=== PATIENT | female | born 1960 | race Caucasian/White ===

== ENCOUNTER 2017-10-12 15:06 | Inpatient (IN) | payer MEDICARE, MEDICAID ==
[2017-10-12 15:44] LABS: % BASOPHILS 1.8 % (0.0-2.0); % EOSINOPHILS 0.7 % (0.0-5.0); % LYMPHOCYTES 12.1 % (20.0-50.0); % MONOCYTES 6.7 % (2.0-10.0); % NEUTROPHILS 78.7 % (40.0-80.0); BASOPHILE ABSOLUTE 0.1 Th/cumm (0-0.2); HEMATOCRIT 39.8 % (41.0-60); HEMOGLOBIN 13.1 gm/dL (12-16); LYMPHOCYTE ABSOLUTE 0.8 Th/cmm (1.5-3.0); MEAN CELL VOLUME 89.4 fl (81-100); MEAN CORPUSCULAR HEMOGLOBIN 29.5 pg (27.0-31.0); MEAN PLATELET VOLUME 7.5 fl; MONOCYTE ABSOLUTE 0.4 Th/cmm (0.3-1.0); NEUTROPHILE ABSOLUTE 5.2 Th/cmm (1.8-8.0); PLATELET COUNT 229 Th/cmm (150-400); RED BLOOD COUNT 4.45 Mil/cmm (3.80-5.10); RED CELL DISTRIBUTION WIDTH 14.4 % (11.5-20.0); WHITE BLOOD COUNT 6.5 Th/cmm (4.8-10.8)
[2017-10-12 16:02] LABS: ACETAMINOPHEN < 10.0 ug/mL (10.0-30.0); ALB/GLOB RATIO 1.4 (1.0-1.8); ALBUMIN 3.8 gm/dL (3.7-5.3); ALKALINE PHOSPHATASE 103 U/L (34-104); ANION GAP 13.4 (7.0-16.0); BILIRUBIN,TOTAL 0.3 mg/dL (0.3-1.0); BUN - UREA NITROGEN 11 mg/dL (7-25); CALCIUM SERUM 9.6 mg/dL (8.6-10.3); CARBON DIOXIDE 26.6 mEq/L (21.0-31.0); CHLORIDE 104 mEq/L (98-107); CHOLESTEROL 172 mg/dL (<200); CREATININE - SERUM 0.8 mg/dL (0.6-1.2); GFR AFRICAN-AMERICAN > 60.0 ml/min (>90); GFR NON AFRICAN-AMERICAN > 60.0 ml/min; GLUCOSE 82 mg/dL (70-105); HDL -HIGH DENSITY LIPOPROTEIN 76 mg/dL (23-92); SALICYLATES (ASPIRIN) < 25.0 mg/L (30.0-100.0); SGOT 16 U/L (13-39); SGPT/ALT 11 U/L (7-52); SODIUM SERUM 140 mEq/L (136-145); TOTAL PROTEIN,SERUM 6.6 gm/dL (6.0-8.3); TRIGLYCERIDES 62 mg/dL (<150)
--- NOTE | 2017-10-12 16:44 | ED Physician Chart ---
ED Chief Complaint/HPI - Patient Information Date Seen:: 10/12/17 Time Seen:: 15:20 Chief Complaint:: Agitation History of Present Illness:: onset x 3 days of agitation and aggressive behavior; no report of trauma, SIs, H /As, S/T, neck pain, C/P, SOB, Abd. Pain, A/N/V/D/C, fever, chills, or urinary s /s Allergies:: Allergies Allergy/AdvReac Type Severity Reaction Status Date / Time ampicillin Allergy Verified 10/12/17 15:21 ciprofloxacin [From Cipro] Allergy Verified 10/12/17 15:22 Penicillins [PCN] Allergy Verified 10/12/17 15:22 sulfamethoxazole Allergy Verified 10/12/17 15:22 [From Bactrim] trimethoprim [From Bactrim] Allergy Verified 10/12/17 15:22 Vitals:: Vital Signs - 8 hr 10/12/17 15:23 Temp 99.5 F HR 68 RR 16 BP 143/87 O2 Sat % 97 Historian:: Patient, EMS Review:: Nurse's Note Reviewed, Old Chart Reviewed, EMS run form Reviewed ED Review of Systems - Review of Systems General/Constitutional: No fever, No chills, No weight loss, No weakness, No diaphoresis, No edema, No loss of appetite Skin: No skin lesions, No rash, No bruising Head: No headache, No light-headedness Eyes: No loss of vision, No pain, No diplopia ENT: No earache, No nasal drainage, No sore throat, No tinnitus Neck: No neck pain, No swelling, No thyromegaly, No stiffness, No mass noted Cardio Vascular: No chest pain, No palpitations, No PND, No orthopnea, No edema Pulmonary: SOB, Cough, No sputum, Wheezing GI: No nausea, No vomiting, No diarrhea, No pain, No melena, No hematochezia, No constipation, No hematemesis G/U: No dysuria, No frequency, No hematuria, No nacturia [employer] Specialist: No vaginal discharge, No abnormal vaginal bleed, No contraction Musculoskeletal: No bone or joint pain, No back pain, No muscle pain Endocrine: No polyuria, No polydipsia Psychiatric: Prior psych history, Depression, Anxiety, No suicidal ideation, No homicidal ideation, No auditory hallucination, No visual hallucination Hematopoietic: No bruising, No lymphadenopathy Allergic/Immuno: No urticaria, No angioedema Neurological: No syncope, No focal symptoms, No weakness, No paresthesia, No headache, No seizure, No dizziness, No confusion, No vertigo ED Past Medical History - Past Medical History Obtainable: Yes Past Medical History: HTN, CAD, Asthma/COPD, Dyslipidemia, PUD/GERD, Thyroid disorder Family History: Heart disease, HTN Social History: Non Smoker, No Alcohol, No Drug Use, Single, Care Facility Surgical History: None Psychiatricy History: Depression, Bipolar Medication: Reviewed Family Medical History - Family Member Mother History Unknown: Yes ED Physical Exam - Physical Examination General/Constitutional: Awake, Well-developed, well-nourished, Alert, No distress, GCS 15, Non-toxic appearing, Ambulatory Head: Atraumatic Eyes: Lids, conjuctiva normal, PERRL, EOMI Skin: Nl inspection, No rash, No skin lesions, No ecchymosis, Well hydrated, No lymphadenopathy ENMT: External ears, nose nl, TM canals nl, Nasal exam nl, Lips, teeth, gums nl , Oropharynx nl, Tonsils nl Neck: Nontender, Full ROM w/o pain, No JVD, No nuchal rigidity, No bruit, No mass, No stridor Respiratory: Nl effort/Exclusion, Clear to Auscultation, No Wheeze/Rhonchi/Rales Cardio Vascular: RRR, No murmur, gallop, rubs, NL S1 S2, Carotid/Femoral/Distal pulses equal bilaterally GI: No tenderness/rebounding/guarding, No organomegaly, No hernia, Normal BS's, Nondistended, No mass/bruits, No McBurney tenderness : No CVA tenderness Extremities: No tenderness or effusion, Full ROM, normal strength in all extremities, No edema, Normal digits & nails Neuro/Psych: Alert/oriented, DTR's symmetric, Normal sensory exam, Normal motor strength, Judgement/insight normal, Mood normal, Normal gait, No focal deficits Misc: Normal back, No paraspinal tenderness ED Labs/Radiology/EKG Results - Lab Results Results: Laboratory Tests 10/12/17 10/12/17 15:34 15:34 WBC 6.5 RBC 4.45 Hgb 13.1 Hct 39.8 L MCV 89.4 MCH 29.5 MCHC Differential 33.0 RDW 14.4 Plt Count 229 MPV 7.5 Neutrophils % 78.7 Lymphocytes % 12.1 L Monocytes % 6.7 Eosinophils % 0.7 Basophils % 1.8 Sodium 140 Potassium 4.0 Chloride 104 Carbon Dioxide 26.6 Anion Gap 13.4 BUN 11 Creatinine 0.8 Est GFR ( Amer) > 60.0 Est GFR (Non-Af Amer) > 60.0 BUN/Creatinine Ratio 13.8 Glucose 82 Calcium 9.6 Total Bilirubin 0.3 AST 16 ALT 11 Alkaline Phosphatase 103 Total Protein 6.6 Albumin 3.8 Globulin 2.8 Albumin/Globulin Ratio 1.4 Triglycerides 62 Cholesterol 172 LDL Cholesterol Direct 79 HDL Cholesterol 76 Salicylates < 25.0 L Acetaminophen < 10.0 L Ethyl Alcohol < 10 Comments:: unremarkable - EKG Interpretations EKG Time:: 15:32 Rate & Rhythm: 63; NSR Comments:: non-specific st-t changes ED Septic Shock - . Is Septic Shock (SBP<90, OR Lactate>4 mmol\L) present?: No - <6hrs of presentation: Vital Signs: Vital Signs - 8 hr 10/12/17 15:23 Temp 99.5 F HR 68 RR 16 BP 143/87 O2 Sat % 97 ED Reassessment (Disposition) - Reassessment Reassessment Condition:: Improved - Diagnosis Diagnosis:: Dx: Anxiety; Agitation; Bipolar Disorder; Psychosis; Medical Clearance - Aftercare/Follow up Instructions Aftercare/Follow-Up Instructions:: Counseled pt regarding lab results/diagnosis & need follow up, Counseled pt & family regarding lab results/diagnosis & need follow up - Patient Disposition Discharge/Transfer:: Acute Care w/in this hosp Admitted to:: [facility] Condition at Disposition:: Stable, Improved
[2017-10-12 17:14] LABS: URINE MICROSCOPIC INDICATED? YES; URINE SOURCE CLEAN C
[2017-10-12 17:16] LABS: URINE BILIRUBIN NEGATIVE (NEGATIVE); URINE BLOOD NEGATIVE (NEGATIVE); URINE GLUCOSE (UA) NEGATIVE (NEGATIVE); URINE KETONE TRACE mg/dL (NEGATIVE); URINE LEUKOCYTE ESTERASE MODERATE (NEGATIVE); URINE NITRATE NEGATIVE (NEGATIVE); URINE PROTEIN NEGATIVE (NEGATIVE); URINE UROBILINOGEN 0.2 E.U./dL (0.2 - 1.0)
[2017-10-12 17:25] LABS: URINE CLARITY CLEAR (CLEAR); URINE COLOR YELLOW
[2017-10-12 17:26] LABS: URINE BACTERIA NONE SEEN /hpf (NONE SEEN); URINE EPITHELIAL CELLS NONE SEEN /lpf (FEW); URINE RBC NONE SEEN /hpf (0-5)
[2017-10-12 17:34] VITALS: BP 148/93
[2017-10-12 17:42] LABS: AMPHETAMINE URINE NEGATIVE (NEGATIVE); BARBITURATES URINE POSITIVE (NEGATIVE); COCAINE METABOLITE QUAL URINE NEGATIVE (NEGATIVE); PHENCYCLIDINE (PCP) URINE NEGATIVE (NEGATIVE)
[2017-10-12] MEDS ORDERED: Magnesium Hydroxide (MOM) 30 mL UDC PO PRN (17:42)
[2017-10-12] MEDS ORDERED: Albuterol Nebulizer 2.5mg/3mL HHN PRN (17:42)
[2017-10-12 17:43] LABS: METHAMPHETAMINES QUAL URINE NEGATIVE (NEGATIVE); OPIATES (MORPHINE) QUAL. URINE NEGATIVE (NEGATIVE); TRICYCLICS (TCA) QUAL. URINE NEGATIVE (NEGATIVE)
[2017-10-12 17:44] LABS: CANNABINOID THC POSITIVE (NEGATIVE); METHADONE URINE NEGATIVE (NEGATIVE)
[2017-10-12 17:45] LABS: BENZODIAZEPINES QUAL URINE POSITIVE (NEGATIVE)
[2017-10-12 17:50] LABS: A1C % 5.1 % (4.0-6.0)
[2017-10-12] MEDS ORDERED: Maalox 30 mL Cup PO PRN (17:56)
[2017-10-13] MEDS ORDERED: Diltiazem 30 mg Tab PO SCH (09:00)
[2017-10-13] MEDS ORDERED: Non-Formulary Item 1 EA (Olopatadine Hcl [Pataday] 1 DROP) EACH EYE SCH (09:00)
[2017-10-13] MEDS ORDERED: Non-Formulary Item 1 EA (Multivitamin-Min/Iron/Fa/Vit K [Multi-Day Plus Minerals Tablet] 1 PO SCH (09:00)
[2017-10-13] MEDS: Multivitamin w/ Minerals Tab PO SCH (09:32)
[2017-10-13] MEDS: Diltiazem 30 mg Tab PO SCH ×2 (10:00→18:00)
[2017-10-13] MEDS: APAP/Oxycodone 5/325mg Oral Tab PO PRN ×2 (10:18→22:55)
[2017-10-13] MEDS ORDERED: Fleet Enema 135 mL RC PRN (12:59)
--- NOTE | 2017-10-13 16:25 | Internal Medicine Prog Note ---
Internal Medicine Subjective - Subjective Service Date: 10/13/17 ([id number]) Internal Medicine Objective - Results Result Diagrams: 10/12/17 15:34 10/12/17 15:34 Recent Labs: Laboratory Last Values WBC 6.5 Th/cmm (4.8-10.8) 10/12/17 15:34 RBC 4.45 Mil/cmm (3.80-5.10) 10/12/17 15:34 Hgb 13.1 gm/dL (12-16) 10/12/17 15:34 Hct 39.8 % (41.0-60) L 10/12/17 15:34 MCV 89.4 fl (81-100) 10/12/17 15:34 MCH 29.5 pg (27.0-31.0) 10/12/17 15:34 MCHC Differential 33.0 pg (28.0-36.0) 10/12/17 15:34 RDW 14.4 % (11.5-20.0) 10/12/17 15:34 Plt Count 229 Th/cmm (150-400) 10/12/17 15:34 MPV 7.5 fl 10/12/17 15:34 Neutrophils % 78.7 % (40.0-80.0) 10/12/17 15:34 Lymphocytes % 12.1 % (20.0-50.0) L 10/12/17 15:34 Monocytes % 6.7 % (2.0-10.0) 10/12/17 15:34 Eosinophils % 0.7 % (0.0-5.0) 10/12/17 15:34 Basophils % 1.8 % (0.0-2.0) 10/12/17 15:34 Sodium 140 mEq/L (136-145) 10/12/17 15:34 Potassium 4.0 mEq/L (3.5-5.1) 10/12/17 15:34 Chloride 104 mEq/L (98-107) 10/12/17 15:34 Carbon Dioxide 26.6 mEq/L (21.0-31.0) 10/12/17 15:34 Anion Gap 13.4 (7.0-16.0) 10/12/17 15:34 BUN 11 mg/dL (7-25) 10/12/17 15:34 Creatinine 0.8 mg/dL (0.6-1.2) 10/12/17 15:34 Est GFR ( Amer) > 60.0 ml/min (>90) 10/12/17 15:34 Est GFR (Non-Af Amer) > 60.0 ml/min 10/12/17 15:34 BUN/Creatinine Ratio 13.8 10/12/17 15:34 Glucose 82 mg/dL (70-105) 10/12/17 15:34 Hemoglobin A1c % 5.1 % (4.0-6.0) 10/12/17 15:34 Calcium 9.6 mg/dL (8.6-10.3) 10/12/17 15:34 Total Bilirubin 0.3 mg/dL (0.3-1.0) 10/12/17 15:34 AST 16 U/L (13-39) 10/12/17 15:34 ALT 11 U/L (7-52) 10/12/17 15:34 Alkaline Phosphatase 103 U/L (34-104) 10/12/17 15:34 Total Protein 6.6 gm/dL (6.0-8.3) 10/12/17 15:34 Albumin 3.8 gm/dL (3.7-5.3) 10/12/17 15:34 Globulin 2.8 gm/dL 10/12/17 15:34 Albumin/Globulin Ratio 1.4 (1.0-1.8) 10/12/17 15:34 Triglycerides 62 mg/dL (<150) 10/12/17 15:34 Cholesterol 172 mg/dL (<200) 10/12/17 15:34 LDL Cholesterol Direct 79 mg/dL (75-193) 10/12/17 15:34 HDL Cholesterol 76 mg/dL (23-92) 10/12/17 15:34 TSH 0.60 uIU/ml (0.34-5.60) 10/12/17 15:34 Urine Source CLEAN C 10/12/17 15:45 Urine Color YELLOW 10/12/17 15:45 Urine Clarity CLEAR (CLEAR) 10/12/17 15:45 Urine pH 7.0 (4.6 - 8.0) 10/12/17 15:45 Ur Specific [place] 1.015 (1.005-1.030) 10/12/17 15:45 Urine Protein NEGATIVE mg/dL (NEGATIVE) 10/12/17 15:45 Urine Glucose (UA) NEGATIVE mg/dL (NEGATIVE) 10/12/17 15:45 Urine Ketones TRACE mg/dL (NEGATIVE) 10/12/17 15:45 Urine Blood NEGATIVE (NEGATIVE) 10/12/17 15:45 Urine Nitrate NEGATIVE (NEGATIVE) 10/12/17 15:45 Urine Bilirubin NEGATIVE (NEGATIVE) 10/12/17 15:45 Urine Urobilinogen 0.2 E.U./dL (0.2 - 1.0) 10/12/17 15:45 Ur Leukocyte Esterase MODERATE (NEGATIVE) H 10/12/17 15:45 Urine RBC NONE SEEN /hpf (0-5) 10/12/17 15:45 Urine WBC 6-10 /hpf (0-5) H 10/12/17 15:45 Ur Epithelial Cells NONE SEEN /lpf (FEW) 10/12/17 15:45 Urine Bacteria NONE SEEN /hpf (NONE SEEN) 10/12/17 15:45 Salicylates < 25.0 mg/L (30.0-100.0) L 10/12/17 15:34 Urine Opiates Screen NEGATIVE (NEGATIVE) 10/12/17 15:45 Urine Methadone Screen NEGATIVE (NEGATIVE) 10/12/17 15:45 Acetaminophen < 10.0 ug/mL (10.0-30.0) L 10/12/17 15:34 Ur Barbiturates Screen POSITIVE (NEGATIVE) H 10/12/17 15:45 Ur Tricyclics Screen NEGATIVE (NEGATIVE) 10/12/17 15:45 Ur Phencyclidine Scrn NEGATIVE (NEGATIVE) 10/12/17 15:45 Amphetamines Screen NEGATIVE (NEGATIVE) 10/12/17 15:45 U Methamphetamines Scrn NEGATIVE (NEGATIVE) 10/12/17 15:45 U Benzodiazepines Scrn POSITIVE (NEGATIVE) H 10/12/17 15:45 U Cocaine Metab Screen NEGATIVE (NEGATIVE) 10/12/17 15:45 U Cannabinoids Screen POSITIVE (NEGATIVE) H 10/12/17 15:45 Ethyl Alcohol < 10 mg/dL (0-10) 10/12/17 15:34 - Physical Exam Vitals and I&O: Vital Signs Temp 98.0 F 10/13/17 14:00 Pulse 81 10/13/17 14:00 Resp 18 10/13/17 14:00 BP 133/85 10/13/17 14:00 Pulse Ox 98 10/13/17 14:00 Intake & Output 10/12/17 10/13/17 10/13/17 18:59 06:59 18:59 Other: Stool Characteristics Soft Active Medications: Current Medications Acetaminophen (Tylenol) 650 mg PO Q4HR PRN PRN Reason: Mild Pain / Temp above 100 Stop: 12/11/17 17:55 Al Hydrox/Mg Hydrox/Simethicone (Maalox) 30 ml PO Q4HR PRN PRN Reason: GI DISTRESS Stop: 12/11/17 17:55 Bisacodyl (Dulcolax 10 Mg Supp) 10 mg RC DAILY PRN PRN Reason: Constipation Stop: 12/11/17 17:37 Cholecalciferol (Vitamin D3) 1,000 iu PO DAILY [facility] Stop: 12/12/17 08:59 Last Admin: 10/13/17 09:32 Dose: 1,000 iu Diltiazem HCl (Cardizem) 30 mg PO BID RODRÍGUEZ Stop: 12/12/17 08:59 Last Admin: 10/13/17 10:00 Dose: 30 mg Docusate Sodium (Colace) 200 mg PO HS [facility] Stop: 12/11/17 20:59 Last Admin: 10/12/17 21:39 Dose: 200 mg Folic Acid (Folate) 5 mg PO DAILY RODRÍGUEZ Stop: 12/12/17 08:59 Last Admin: 10/13/17 09:31 Dose: 5 mg Gabapentin (Neurontin) 800 mg PO TID [facility] Stop: 12/12/17 23:33 Gemfibrozil (Lopid) 600 mg PO HS [facility] Stop: 12/11/17 20:59 Last Admin: 10/12/17 21:39 Dose: 600 mg Isosorbide Mononitrate (Imdur) 30 mg PO DAILY [facility] Stop: 12/12/17 08:59 Last Admin: 10/13/17 09:32 Dose: 30 mg Levothyroxine Sodium (Synthroid) 0.1 mg PO QDAC RODRÍGUEZ Stop: 12/12/17 07:29 Loratadine (Claritin) 10 mg PO DAILY [facility] Stop: 12/12/17 08:59 Last Admin: 10/13/17 09:32 Dose: 10 mg Lorazepam (Ativan) 0.5 mg PO Q4HR PRN; Protocol PRN Reason: Agitation Stop: 11/11/17 17:55 Magnesium Hydroxide (Milk Of Magnesia) 30 ml PO DAILY PRN PRN Reason: Constipation Stop: 12/11/17 17:41 Mirtazapine (Remeron) mg PO HS RODRÍGUEZ PRN Reason: Protocol Stop: 12/11/17 20:59 Miscellaneous (Butalbit/Acetamin/Caff/Codeine [Fioricet-Cod 49-290-03-30 Cap]) 1 cap PO Q6H PRN PRN Reason: Headache Miscellaneous (Levalbuterol Hcl [Xopenex]) 1 unit IH Q4H PRN PRN Reason: Shortness of Breath Miscellaneous (Levalbuterol Tartrate [Xopenex Hfa]) 0.045 mg IH BID RODRÍGUEZ Stop: 12/12/17 08:59 Miscellaneous (Olopatadine Hcl [Pataday]) 1 drop EACH EYE DAILY [facility] Stop: 12/12/17 08:59 Ondansetron HCl (Zofran Odt) 8 mg PO Q8H PRN PRN Reason: Nausea / Vomiting Oxycodone/Acetaminophen (Percocet 5/325mg Oral Tab) 1 tab PO Q4H PRN PRN Reason: Pain (Severe) Last Admin: 10/13/17 10:18 Dose: 1 tab Rivaroxaban (Xarelto) 20 mg PO DAILY RODRÍGUEZ Stop: 12/12/17 08:59 Last Admin: 10/13/17 09:32 Dose: 20 mg Sodium Phosphate (Fleet Enema) ml RC DAILY PRN PRN Reason: Constipation Stop: 12/13/17 08:59 Triamterene/HCTZ (Dyazide) 1 cap PO DAILY RODRÍGUEZ Stop: 12/12/17 08:59 Last Admin: 10/13/17 10:00 Dose: 1 cap Zolpidem Tartrate (Ambien) 5 mg PO HS PRN PRN Reason: Insomnia Stop: 12/11/17 17:55
--- NOTE | 2017-10-13 18:14 | History & Physical ---
ADMIT DATE: 10/13/2017 CHIEF COMPLAINT: Agitation. HISTORY OF PRESENT ILLNESS: This is a 57-year-old female who is a senior living resident, admitted to the Geropsych Unit due to a 3-day history of agitation and aggressive behavior towards nursing staff. PAST MEDICAL HISTORY: Hypertension, CAD, asthma, COPD, dyslipidemia, GERD, and hypothyroid. FAMILY HISTORY: Noncontributory. SOCIAL HISTORY: The patient is a senior living resident. SURGICAL HISTORY: None. MEDICATIONS: Please see medication list. REVIEW OF SYSTEMS: GENERAL: Denies any fevers and chills. CARDIOVASCULAR: Denies chest pain. RESPIRATORY: Denies shortness of breath. GASTROINTESTINAL: Denies nausea, vomiting, abdominal pain. GENITOURINARY: Denies increased frequency or dysuria. NEUROLOGIC: No headaches, seizures, or syncope. All other systems are reviewed and are negative. PHYSICAL EXAMINATION: GENERAL: The patient is well developed, well nourished, no acute distress. VITAL SIGNS: Temperature 98.0, heart rate 81, blood pressure 132/85, respiration 18, O2 __%. HEENT: Head; normocephalic, atraumatic. NECK: Supple. No mass. LUNGS: Clear bilaterally. HEART: Regular rate and rhythm. ABDOMEN: Soft, nontender. LABORATORY DATA: WBC 6.5, H and H 13.1 and 39.8, platelet of 229. Sodium 140, potassium 4.0, chloride 104, BUN 11, creatinine 0.8. The patient had a urinalysis done, positive for UTI. ASSESSMENT: Acute urinary tract infection, agitation, hypertension, COPD, GERD, hypothyroid. PLAN: We will add p.o. antibiotics of Levaquin for the patient's UTI. We will encourage fluids. Continue senior living medications. We will continue to follow this patient. JOB# [id number]
--- NOTE | 2017-10-14 01:13 | Psychosocial Evaluation ---
DATE OF SERVICE: 10/12/2017 IDENTIFYING DATA: The patient is a 57-year-old woman, resident of [facility]. Information obtained by directly interviewing the patient as well as reviewing the admission papers and they are reliable. JUSTIFICATION FOR HOSPITALIZATION: The patient is admitted on a voluntary basis in view of her acute depression and agitation. CHIEF COMPLAINT: "I don't know. I am having severe headache." HISTORY OF PRESENT ILLNESS: This is the first psychiatric hospitalization to [facility] for this 57-year-old who is a resident of the [facility]. The patient is reported to have been getting easily agitated and hence the patient has been transferred over here for further care. PAST PSYCHIATRIC HISTORY: The patient is reported to have been diagnosed with depression and has been on Prozac and Remeron. MEDICAL HISTORY AND PHYSICAL EXAMINATION: Requested by Dr. Chogn. The patient has a history of chronic kidney disease stage 3 and psoriasis and asthma. ALLERGIES: THE PATIENT IS REPORTED TO BE ALLERGIC TO AMPICILLIN, CIPRO, PENICILLIN, AND BACTRIM. SUBSTANCE ABUSE HISTORY: None. MENTAL STATUS EXAMINATION: The patient is a 57-year-old, looking her stated age, superficially cooperative. The patient is tearful and crying. The patient is stating that she has been having lot of headache and is not able to relax. The patient is superficially cooperative. Eye contact is noted to be poor. Mood is noted to be depressed. Denies any active hallucinations or delusions are noted at this time. Coping skills are noted to be very poor. The patient is reported to have been getting easily agitated and screaming and yelling. The patient at this time is not able to contract for safety. The patient's behavior has been agitated and the patient could not be contained at a lower level of care and hence the patient has been transferred over here for further care. The patient is alert and awake and the patient is fully aware that she is in the hospital. The patient is also ____ work and age. Attention span and concentration are noted to be poor at this time. DIAGNOSTIC IMPRESSION: AXIS I: Major depressive disorder, recurrent and moderate. AXIS II: None. AXIS III: As per Dr. Chong. IMMEDIATE TREATMENT PLAN: The patient is going to be observed on inpatient unit, provided with supportive psychotherapy. The patient is going to be closely monitored. Once stabilized, the patient is going to be discharged to [facility] to be followed up on an outpatient basis. JOB# [id number]
[2017-10-14] MEDS: Levothyroxine 0.1 Mg Tab PO SCH (06:41)
[2017-10-14] MEDS: APAP/Oxycodone 5/325mg Oral Tab PO PRN ×3 (09:16→21:05)
[2017-10-14] MEDS: Multivitamin w/ Minerals Tab PO SCH (09:17)
[2017-10-14] MEDS: Diltiazem 30 mg Tab PO SCH ×2 (09:45→17:08)
--- NOTE | 2017-10-14 15:40 | Internal Medicine Prog Note ---
Internal Medicine Subjective - Subjective Service Date: 10/14/17 Patient seen and examined:: with staff Patient is:: awake Per staff patient has:: no adverse event Internal Medicine Objective - Results Result Diagrams: 10/12/17 15:34 10/12/17 15:34 Recent Labs: Laboratory Last Values WBC 6.5 Th/cmm (4.8-10.8) 10/12/17 15:34 RBC 4.45 Mil/cmm (3.80-5.10) 10/12/17 15:34 Hgb 13.1 gm/dL (12-16) 10/12/17 15:34 Hct 39.8 % (41.0-60) L 10/12/17 15:34 MCV 89.4 fl (81-100) 10/12/17 15:34 MCH 29.5 pg (27.0-31.0) 10/12/17 15:34 MCHC Differential 33.0 pg (28.0-36.0) 10/12/17 15:34 RDW 14.4 % (11.5-20.0) 10/12/17 15:34 Plt Count 229 Th/cmm (150-400) 10/12/17 15:34 MPV 7.5 fl 10/12/17 15:34 Neutrophils % 78.7 % (40.0-80.0) 10/12/17 15:34 Lymphocytes % 12.1 % (20.0-50.0) L 10/12/17 15:34 Monocytes % 6.7 % (2.0-10.0) 10/12/17 15:34 Eosinophils % 0.7 % (0.0-5.0) 10/12/17 15:34 Basophils % 1.8 % (0.0-2.0) 10/12/17 15:34 Sodium 140 mEq/L (136-145) 10/12/17 15:34 Potassium 4.0 mEq/L (3.5-5.1) 10/12/17 15:34 Chloride 104 mEq/L (98-107) 10/12/17 15:34 Carbon Dioxide 26.6 mEq/L (21.0-31.0) 10/12/17 15:34 Anion Gap 13.4 (7.0-16.0) 10/12/17 15:34 BUN 11 mg/dL (7-25) 10/12/17 15:34 Creatinine 0.8 mg/dL (0.6-1.2) 10/12/17 15:34 Est GFR ( Amer) > 60.0 ml/min (>90) 10/12/17 15:34 Est GFR (Non-Af Amer) > 60.0 ml/min 10/12/17 15:34 BUN/Creatinine Ratio 13.8 10/12/17 15:34 Glucose 82 mg/dL (70-105) 10/12/17 15:34 Hemoglobin A1c % 5.1 % (4.0-6.0) 10/12/17 15:34 Calcium 9.6 mg/dL (8.6-10.3) 10/12/17 15:34 Total Bilirubin 0.3 mg/dL (0.3-1.0) 10/12/17 15:34 AST 16 U/L (13-39) 10/12/17 15:34 ALT 11 U/L (7-52) 10/12/17 15:34 Alkaline Phosphatase 103 U/L (34-104) 10/12/17 15:34 Total Protein 6.6 gm/dL (6.0-8.3) 10/12/17 15:34 Albumin 3.8 gm/dL (3.7-5.3) 10/12/17 15:34 Globulin 2.8 gm/dL 10/12/17 15:34 Albumin/Globulin Ratio 1.4 (1.0-1.8) 10/12/17 15:34 Triglycerides 62 mg/dL (<150) 10/12/17 15:34 Cholesterol 172 mg/dL (<200) 10/12/17 15:34 LDL Cholesterol Direct 79 mg/dL (75-193) 10/12/17 15:34 HDL Cholesterol 76 mg/dL (23-92) 10/12/17 15:34 TSH 0.60 uIU/ml (0.34-5.60) 10/12/17 15:34 Urine Source CLEAN C 10/12/17 15:45 Urine Color YELLOW 10/12/17 15:45 Urine Clarity CLEAR (CLEAR) 10/12/17 15:45 Urine pH 7.0 (4.6 - 8.0) 10/12/17 15:45 Ur Specific [place] 1.015 (1.005-1.030) 10/12/17 15:45 Urine Protein NEGATIVE mg/dL (NEGATIVE) 10/12/17 15:45 Urine Glucose (UA) NEGATIVE mg/dL (NEGATIVE) 10/12/17 15:45 Urine Ketones TRACE mg/dL (NEGATIVE) 10/12/17 15:45 Urine Blood NEGATIVE (NEGATIVE) 10/12/17 15:45 Urine Nitrate NEGATIVE (NEGATIVE) 10/12/17 15:45 Urine Bilirubin NEGATIVE (NEGATIVE) 10/12/17 15:45 Urine Urobilinogen 0.2 E.U./dL (0.2 - 1.0) 10/12/17 15:45 Ur Leukocyte Esterase MODERATE (NEGATIVE) H 10/12/17 15:45 Urine RBC NONE SEEN /hpf (0-5) 10/12/17 15:45 Urine WBC 6-10 /hpf (0-5) H 10/12/17 15:45 Ur Epithelial Cells NONE SEEN /lpf (FEW) 10/12/17 15:45 Urine Bacteria NONE SEEN /hpf (NONE SEEN) 10/12/17 15:45 Salicylates < 25.0 mg/L (30.0-100.0) L 10/12/17 15:34 Urine Opiates Screen NEGATIVE (NEGATIVE) 10/12/17 15:45 Urine Methadone Screen NEGATIVE (NEGATIVE) 10/12/17 15:45 Acetaminophen < 10.0 ug/mL (10.0-30.0) L 10/12/17 15:34 Ur Barbiturates Screen POSITIVE (NEGATIVE) H 10/12/17 15:45 Ur Tricyclics Screen NEGATIVE (NEGATIVE) 10/12/17 15:45 Ur Phencyclidine Scrn NEGATIVE (NEGATIVE) 10/12/17 15:45 Amphetamines Screen NEGATIVE (NEGATIVE) 10/12/17 15:45 U Methamphetamines Scrn NEGATIVE (NEGATIVE) 10/12/17 15:45 U Benzodiazepines Scrn POSITIVE (NEGATIVE) H 10/12/17 15:45 U Cocaine Metab Screen NEGATIVE (NEGATIVE) 10/12/17 15:45 U Cannabinoids Screen POSITIVE (NEGATIVE) H 10/12/17 15:45 Ethyl Alcohol < 10 mg/dL (0-10) 10/12/17 15:34 - Physical Exam Vitals and I&O: Vital Signs Temp 97.8 F 10/14/17 14:00 Pulse 75 10/14/17 14:00 Resp 20 10/14/17 14:00 BP 136/82 10/14/17 14:00 Pulse Ox 98 10/14/17 14:00 Intake & Output 10/13/17 10/14/17 10/14/17 18:59 06:59 18:59 Intake Total 1000 Balance 1000 Intake: Oral 1000 Other: # Voids 3 # Bowel Movements 1 Active Medications: Current Medications Acetaminophen (Tylenol) 650 mg PO Q4HR PRN PRN Reason: Mild Pain / Temp above 100 Stop: 12/11/17 17:55 Acetaminophen/Butalbital/Caffeine (Fioricet) 1 tab PO Q6H PRN PRN Reason: Headache Stop: 12/13/17 11:28 Al Hydrox/Mg Hydrox/Simethicone (Maalox) 30 ml PO Q4HR PRN PRN Reason: GI DISTRESS Stop: 12/11/17 17:55 Albuterol Sulfate (Albuterol 2.5mg/3ml Neb Ud) 2.5 mg HHN Q4HRT PRN PRN Reason: Shortness of Breath Stop: 12/11/17 17:41 Albuterol Sulfate (Albuterol 2.5mg/3ml Neb Ud) 2.5 mg HHN BIDRT [facility] Stop: 12/12/17 18:59 Azithromycin (Zithromax) 250 mg PO DAILY [facility] Stop: 10/18/17 08:59 Last Admin: 10/14/17 09:17 Dose: 250 mg Bisacodyl (Dulcolax 10 Mg Supp) 10 mg RC DAILY PRN PRN Reason: Constipation Stop: 12/11/17 17:37 Cholecalciferol (Vitamin D3) 1,000 iu PO DAILY [facility] Stop: 12/12/17 08:59 Last Admin: 10/14/17 09:17 Dose: 1,000 iu Diltiazem HCl (Cardizem) 30 mg PO BID [facility] Stop: 12/12/17 08:59 Last Admin: 10/13/17 18:00 Dose: Not Given Docusate Sodium (Colace) 200 mg PO HS [facility] Stop: 12/11/17 20:59 Last Admin: 10/13/17 21:18 Dose: Not Given Fluoxetine HCl (Prozac) 20 mg PO DAILY [facility] PRN Reason: Protocol Stop: 12/13/17 08:59 Last Admin: 10/14/17 09:16 Dose: 20 mg Folic Acid (Folate) 5 mg PO DAILY [facility] Stop: 12/12/17 08:59 Last Admin: 10/14/17 09:17 Dose: 5 mg Gabapentin (Neurontin) 800 mg PO TID [facility] Stop: 12/12/17 23:33 Last Admin: 10/14/17 09:18 Dose: 800 mg Gemfibrozil (Lopid) 600 mg PO HS [facility] Stop: 12/11/17 20:59 Last Admin: 10/13/17 21:18 Dose: 600 mg Isosorbide Mononitrate (Imdur) 30 mg PO DAILY [facility] Stop: 12/12/17 08:59 Last Admin: 10/14/17 09:18 Dose: 30 mg Levothyroxine Sodium (Synthroid) 0.1 mg PO QDAC [facility] Stop: 12/12/17 07:29 Last Admin: 10/14/17 06:41 Dose: 0.1 mg Loratadine (Claritin) 10 mg PO DAILY [facility] Stop: 12/12/17 08:59 Last Admin: 10/14/17 09:17 Dose: 10 mg Lorazepam (Ativan) 0.5 mg PO Q4HR PRN; Protocol PRN Reason: Agitation Stop: 11/11/17 17:55 Magnesium Hydroxide (Milk Of Magnesia) 30 ml PO DAILY PRN PRN Reason: Constipation Stop: 12/11/17 17:41 Mirtazapine (Remeron) 15 mg PO [facility] PRN Reason: Protocol Stop: 12/11/17 20:59 Miscellaneous (Olopatadine Hcl [Pataday]) 1 drop EACH EYE DAILY [facility] Stop: 12/12/17 08:59 Ondansetron HCl (Zofran Odt) 8 mg PO Q8H PRN PRN Reason: Nausea / Vomiting Oxycodone/Acetaminophen (Percocet 5/325mg Oral Tab) 1 tab PO Q4H PRN PRN Reason: Pain (Severe) Last Admin: 10/14/17 09:16 Dose: 1 tab Rivaroxaban (Xarelto) 20 mg PO DAILY [facility] Stop: 12/12/17 08:59 Last Admin: 10/14/17 09:18 Dose: 20 mg Sodium Phosphate (Fleet Enema) 135 ml RC DAILY PRN PRN Reason: Constipation Stop: 12/13/17 08:59 Triamterene/HCTZ (Dyazide) 1 cap PO DAILY [facility] Stop: 12/12/17 08:59 Last Admin: 10/13/17 10:00 Dose: 1 cap Zolpidem Tartrate (Ambien) 5 mg PO HS PRN PRN Reason: Insomnia Stop: 12/11/17 17:55 General: alert HEENT: NC/AT, PERRLA Neck: Supple Lungs: CTAB Cardiovascular: RRR, Normal S1, Normal S2, without murmur Abdomen: soft, non-tender, non-distended Neurological: alert Internal Medicine Assmt/Plan - Assessment Assessment: acute uti agitation htn copd gerd hypothyroid - Plan Plan: continue oral levaquin fall precautions continue current plan of care
--- NOTE | 2017-10-15 05:30 | Progress Notes ---
DATE: 10/14/2017 SUBJECTIVE: Staff was spoken to. The patient is interviewed. Mood is noted to be depressed. Affect is constricted. The patient's coping skills are noted to be poor. The patient has been having difficult time to cope with the stress. The patient is isolative and withdrawn at this time. ASSESSMENT: The patient is still depressed and having difficult time to cope with the stress. PLAN: To continue the patient with the supportive therapy. I encouraged the patient to verbalize the concerns rather than to act out. The patient is not ready to be discharged to a lower level of care in view of her acute depression. JOB# [id number]
[2017-10-15] MEDS: Levothyroxine 0.1 Mg Tab PO SCH (06:43)
[2017-10-15] MEDS: APAP/Oxycodone 5/325mg Oral Tab PO PRN ×3 (06:48→20:40)
[2017-10-15] MEDS: Multivitamin w/ Minerals Tab PO SCH (09:30)
[2017-10-15] MEDS ORDERED: Polyvinyl Alcohol Ophth Soln 15 mL Bottle EACH EYE PRN (12:53)
[2017-10-15] MEDS: Diltiazem 30 mg Tab PO SCH ×2 (13:18→17:21)
--- NOTE | 2017-10-15 15:01 | Internal Medicine Prog Note ---
Internal Medicine Subjective - Subjective Service Date: 10/15/17 Patient is:: awake Per staff patient has:: no adverse event Internal Medicine Objective - Results Result Diagrams: 10/12/17 15:34 10/12/17 15:34 Recent Labs: Laboratory Last Values WBC 6.5 Th/cmm (4.8-10.8) 10/12/17 15:34 RBC 4.45 Mil/cmm (3.80-5.10) 10/12/17 15:34 Hgb 13.1 gm/dL (12-16) 10/12/17 15:34 Hct 39.8 % (41.0-60) L 10/12/17 15:34 MCV 89.4 fl (81-100) 10/12/17 15:34 MCH 29.5 pg (27.0-31.0) 10/12/17 15:34 MCHC Differential 33.0 pg (28.0-36.0) 10/12/17 15:34 RDW 14.4 % (11.5-20.0) 10/12/17 15:34 Plt Count 229 Th/cmm (150-400) 10/12/17 15:34 MPV 7.5 fl 10/12/17 15:34 Neutrophils % 78.7 % (40.0-80.0) 10/12/17 15:34 Lymphocytes % 12.1 % (20.0-50.0) L 10/12/17 15:34 Monocytes % 6.7 % (2.0-10.0) 10/12/17 15:34 Eosinophils % 0.7 % (0.0-5.0) 10/12/17 15:34 Basophils % 1.8 % (0.0-2.0) 10/12/17 15:34 Sodium 140 mEq/L (136-145) 10/12/17 15:34 Potassium 4.0 mEq/L (3.5-5.1) 10/12/17 15:34 Chloride 104 mEq/L (98-107) 10/12/17 15:34 Carbon Dioxide 26.6 mEq/L (21.0-31.0) 10/12/17 15:34 Anion Gap 13.4 (7.0-16.0) 10/12/17 15:34 BUN 11 mg/dL (7-25) 10/12/17 15:34 Creatinine 0.8 mg/dL (0.6-1.2) 10/12/17 15:34 Est GFR ( Amer) > 60.0 ml/min (>90) 10/12/17 15:34 Est GFR (Non-Af Amer) > 60.0 ml/min 10/12/17 15:34 BUN/Creatinine Ratio 13.8 10/12/17 15:34 Glucose 82 mg/dL (70-105) 10/12/17 15:34 Hemoglobin A1c % 5.1 % (4.0-6.0) 10/12/17 15:34 Calcium 9.6 mg/dL (8.6-10.3) 10/12/17 15:34 Total Bilirubin 0.3 mg/dL (0.3-1.0) 10/12/17 15:34 AST 16 U/L (13-39) 10/12/17 15:34 ALT 11 U/L (7-52) 10/12/17 15:34 Alkaline Phosphatase 103 U/L (34-104) 10/12/17 15:34 Total Protein 6.6 gm/dL (6.0-8.3) 10/12/17 15:34 Albumin 3.8 gm/dL (3.7-5.3) 10/12/17 15:34 Globulin 2.8 gm/dL 10/12/17 15:34 Albumin/Globulin Ratio 1.4 (1.0-1.8) 10/12/17 15:34 Triglycerides 62 mg/dL (<150) 10/12/17 15:34 Cholesterol 172 mg/dL (<200) 10/12/17 15:34 LDL Cholesterol Direct 79 mg/dL (75-193) 10/12/17 15:34 HDL Cholesterol 76 mg/dL (23-92) 10/12/17 15:34 TSH 0.60 uIU/ml (0.34-5.60) 10/12/17 15:34 Urine Source CLEAN C 10/12/17 15:45 Urine Color YELLOW 10/12/17 15:45 Urine Clarity CLEAR (CLEAR) 10/12/17 15:45 Urine pH 7.0 (4.6 - 8.0) 10/12/17 15:45 Ur Specific [place] 1.015 (1.005-1.030) 10/12/17 15:45 Urine Protein NEGATIVE mg/dL (NEGATIVE) 10/12/17 15:45 Urine Glucose (UA) NEGATIVE mg/dL (NEGATIVE) 10/12/17 15:45 Urine Ketones TRACE mg/dL (NEGATIVE) 10/12/17 15:45 Urine Blood NEGATIVE (NEGATIVE) 10/12/17 15:45 Urine Nitrate NEGATIVE (NEGATIVE) 10/12/17 15:45 Urine Bilirubin NEGATIVE (NEGATIVE) 10/12/17 15:45 Urine Urobilinogen 0.2 E.U./dL (0.2 - 1.0) 10/12/17 15:45 Ur Leukocyte Esterase MODERATE (NEGATIVE) H 10/12/17 15:45 Urine RBC NONE SEEN /hpf (0-5) 10/12/17 15:45 Urine WBC 6-10 /hpf (0-5) H 10/12/17 15:45 Ur Epithelial Cells NONE SEEN /lpf (FEW) 10/12/17 15:45 Urine Bacteria NONE SEEN /hpf (NONE SEEN) 10/12/17 15:45 Salicylates < 25.0 mg/L (30.0-100.0) L 10/12/17 15:34 Urine Opiates Screen NEGATIVE (NEGATIVE) 10/12/17 15:45 Urine Methadone Screen NEGATIVE (NEGATIVE) 10/12/17 15:45 Acetaminophen < 10.0 ug/mL (10.0-30.0) L 10/12/17 15:34 Ur Barbiturates Screen POSITIVE (NEGATIVE) H 10/12/17 15:45 Ur Tricyclics Screen NEGATIVE (NEGATIVE) 10/12/17 15:45 Ur Phencyclidine Scrn NEGATIVE (NEGATIVE) 10/12/17 15:45 Amphetamines Screen NEGATIVE (NEGATIVE) 10/12/17 15:45 U Methamphetamines Scrn NEGATIVE (NEGATIVE) 10/12/17 15:45 U Benzodiazepines Scrn POSITIVE (NEGATIVE) H 10/12/17 15:45 U Cocaine Metab Screen NEGATIVE (NEGATIVE) 10/12/17 15:45 U Cannabinoids Screen POSITIVE (NEGATIVE) H 10/12/17 15:45 Ethyl Alcohol < 10 mg/dL (0-10) 10/12/17 15:34 RPR NONREACTIVE (NONREACTIVE) 10/12/17 15:34 - Physical Exam Vitals and I&O: Vital Signs Temp 97.2 F 10/15/17 14:36 Pulse 81 10/15/17 14:36 Resp 20 10/15/17 14:36 BP 123/94 10/15/17 14:36 Pulse Ox 96 10/15/17 14:36 Intake & Output 10/14/17 10/15/17 10/15/17 18:59 06:59 18:59 Intake Total 1000 Balance 1000 Intake: Oral 1000 Other: # Voids 3 # Bowel Movements 0 Active Medications: Current Medications Acetaminophen (Tylenol) 650 mg PO Q4HR PRN PRN Reason: Mild Pain / Temp above 100 Stop: 12/11/17 17:55 Last Admin: 10/15/17 13:18 Dose: 650 mg Acetaminophen/Butalbital/Caffeine (Fioricet) 1 tab PO Q6H PRN PRN Reason: Headache Stop: 12/13/17 11:28 Al Hydrox/Mg Hydrox/Simethicone (Maalox) 30 ml PO Q4HR PRN PRN Reason: GI DISTRESS Stop: 12/11/17 17:55 Albuterol Sulfate (Albuterol 2.5mg/3ml Neb Ud) 2.5 mg HHN Q4HRT PRN PRN Reason: Shortness of Breath Stop: 12/11/17 17:41 Albuterol Sulfate (Albuterol 2.5mg/3ml Neb Ud) 2.5 mg HHN BIDRT COUNT [facility] Stop: 12/12/17 18:59 Artificial Tears (Artificial Tears Ophth Soln) 1 drop EACH EYE Q4H PRN PRN Reason: DRY/ITCHY EYE Stop: 12/14/17 12:52 Bisacodyl (Dulcolax 10 Mg Supp) 10 mg RC DAILY PRN PRN Reason: Constipation Stop: 12/11/17 17:37 Cholecalciferol (Vitamin D3) 1,000 iu PO DAILY [facility] Stop: 12/12/17 08:59 Last Admin: 10/15/17 09:30 Dose: 1,000 iu Diltiazem HCl (Cardizem) 30 mg PO BID [facility] Stop: 12/12/17 08:59 Last Admin: 10/15/17 13:18 Dose: 30 mg Docusate Sodium (Colace) 200 mg PO HS [facility] Stop: 12/11/17 20:59 Last Admin: 10/14/17 21:01 Dose: Not Given Fluoxetine HCl (Prozac) 20 mg PO DAILY [facility] PRN Reason: Protocol Stop: 12/13/17 08:59 Last Admin: 10/15/17 09:30 Dose: 20 mg Folic Acid (Folate) 5 mg PO DAILY [facility] Stop: 12/12/17 08:59 Last Admin: 10/15/17 09:31 Dose: 5 mg Gabapentin (Neurontin) 800 mg PO TID [facility] Stop: 12/12/17 23:33 Last Admin: 10/15/17 09:30 Dose: 800 mg Gemfibrozil (Lopid) 600 mg PO HS [facility] Stop: 12/11/17 20:59 Last Admin: 10/14/17 21:00 Dose: 600 mg Isosorbide Mononitrate (Imdur) 30 mg PO DAILY [facility] Stop: 12/12/17 08:59 Last Admin: 10/15/17 09:31 Dose: 30 mg Levothyroxine Sodium (Synthroid) 0.1 mg PO QDAC COUNT [facility] Stop: 12/12/17 07:29 Last Admin: 10/15/17 06:43 Dose: 0.1 mg Loratadine (Claritin) 10 mg PO DAILY [facility] Stop: 12/12/17 08:59 Last Admin: 10/15/17 09:32 Dose: 10 mg Lorazepam (Ativan) 0.5 mg PO Q4HR PRN; Protocol PRN Reason: Agitation Stop: 11/11/17 17:55 Last Admin: 10/15/17 13:08 Dose: 0.5 mg Magnesium Hydroxide (Milk Of Magnesia) 30 ml PO DAILY PRN PRN Reason: Constipation Stop: 12/11/17 17:41 Mirtazapine (Remeron) 15 mg PO [facility] PRN Reason: Protocol Stop: 12/11/17 20:59 Last Admin: 10/14/17 21:00 Dose: 15 mg Nitrofurantoin Macrocrystals (Macrobid) 100 mg PO BID [facility] PRN Reason: Protocol Stop: 10/20/17 16:59 Ondansetron HCl (Zofran Odt) 8 mg PO Q8H PRN PRN Reason: Nausea / Vomiting Oxycodone/Acetaminophen (Percocet 5/325mg Oral Tab) 1 tab PO Q4H PRN PRN Reason: Pain (Severe) Last Admin: 10/15/17 06:48 Dose: 1 tab Rivaroxaban (Xarelto) 20 mg PO DAILY [facility] Stop: 12/12/17 08:59 Last Admin: 10/15/17 09:30 Dose: 20 mg Sodium Phosphate (Fleet Enema) 135 ml RC DAILY PRN PRN Reason: Constipation Stop: 12/13/17 08:59 Triamterene/HCTZ (Dyazide) 1 cap PO DAILY [facility] Stop: 12/12/17 08:59 Last Admin: 10/15/17 13:19 Dose: 1 cap Zolpidem Tartrate (Ambien) 5 mg PO HS PRN PRN Reason: Insomnia Stop: 12/11/17 17:55 General: alert HEENT: NC/AT, PERRLA Neck: Supple Lungs: CTAB Cardiovascular: RRR, Normal S1, Normal S2, without murmur Abdomen: soft, non-tender, non-distended Neurological: alert Internal Medicine Assmt/Plan - Assessment Assessment: acute uti agitation htn copd gerd hypothyroid - Plan Plan: continue oral levaquin fall precautions continue current plan of care
--- NOTE | 2017-10-16 06:13 | Progress Notes ---
DATE: 10/15/2017 SUBJECTIVE: Staff was spoken to. The patient is interviewed. Mood is noted to be depressed. Affect is constricted. The patient is reporting that she has been having problem with sleep at night time. Coping skills at this time are noted to be poor. No side effects to the medications are noted. PLAN: The patient even being on the zolpidem and mirtazapine, the patient is still having some problems and hence it is decided to start the patient with a low dose of trazodone. The patient is going to be closely monitored with the 25 mg of trazodone at nighttime for the insomnia and the patient is going to be closely monitored. I encouraged to participate in the groups and verbalize the concerns. JOB# [id number]
[2017-10-16] MEDS: Levothyroxine 0.1 Mg Tab PO SCH (06:57)
[2017-10-16] MEDS: APAP/Oxycodone 5/325mg Oral Tab PO PRN ×3 (06:58→21:37)
[2017-10-16] MEDS: Pantoprazole 40 mg EC Tab PO SCH (06:58)
[2017-10-16] MEDS: Multivitamin w/ Minerals Tab PO SCH (09:02)
[2017-10-16] MEDS: Diltiazem 30 mg Tab PO SCH ×2 (09:06→16:39)
--- NOTE | 2017-10-16 09:51 | Consultation ---
DATE OF CONSULTATION: 10/15/2017 REFERRING PHYSICIAN: Marcellus Shin M.D. TYPE OF CONSULTATION: Psychology. HISTORY OF PRESENT ILLNESS: The patient is a 57-year-old female who is a resident of [facility]. The following is by review of the medical record and by the patient's self report. The patient is interviewed and evaluated. According to the staff at her facility, the patient has been getting agitated easily and is poorly redirectable as well as verbalizing acute depression. The patient admits she is very depressed during the clinical interview. The patient complained of having severe headaches recently and does not know what could possibly be wrong with her. She denied any wish to or any suicidal ideation, plan or intention. PAST MEDICAL HISTORY: Please see history and physical by Dr. Chong. PAST PSYCHIATRIC HISTORY: The patient has a history of major depression and is under the care of a psychiatrist and psychologist at her facility. CURRENT MEDICATIONS: Prozac and Remeron. ALLERGIES: AMPICILLIN, CIPRO, PENICILLIN, and BACTRIM. SUBSTANCE ABUSE HISTORY: The patient denies any history. PSYCHOSOCIAL HISTORY: The patient did not answer questions about occupational or educational history or zoroastrian affiliation. The patient denies any physical or sexual abuse history or any legal issues at this time. MENTAL STATUS EXAMINATION: The patient appears to be her stated age. The patient's attitude is generally cooperative. Eye contact is fair to poor. Speech is somewhat delayed. Mood is depressed. Affect is tearful and labile. Thought process indicates perseveration on the patient's medical condition as well as her diagnosis of end-stage renal disease. The patient denied any auditory or visual hallucinations or delusions. The patient's behavior has been compliant with care on the unit. Staff reports that the patient does get agitated at times and there have been several yelling episodes. Impulse control is poor. The patient's concentration is poor. The patient did not respond to cognitive redirection or demonstrate the ability to sustain focus and attention. Sensorium is alert and oriented to self and place. The patient did not participate in the memory assessment. The patient did not participate in the interpretation of proverbs. Insight is poor. Judgment is poor. DIAGNOSTIC IMPRESSION: AXIS I: Major depressive disorder, recurrent, moderate. AXIS II: Deferred. AXIS III: Per Dr. Chong. PLAN: The patient has been seen by Dr. Shin for psychiatric evaluation and the management of the patient's psychotropic medications. We will provide supportive psychotherapy to include cognitive behavioral therapy to reduce the patient's depression. We will provide coping strategies for phase of life issues as well as adjustment to the patient's medical condition and recent decline. We will provide supportive therapy throughout the course of the patient's hospital stay. Thank you, Dr. Shin for this consult and the opportunity to participate with you in this patient's care. [facility]# [id number]
--- NOTE | 2017-10-16 13:57 | Internal Medicine Prog Note ---
Internal Medicine Subjective - Subjective Service Date: 10/16/17 Patient is:: awake Per staff patient has:: no adverse event Internal Medicine Objective - Results Result Diagrams: 10/12/17 15:34 10/12/17 15:34 Recent Labs: Laboratory Last Values WBC 6.5 Th/cmm (4.8-10.8) 10/12/17 15:34 RBC 4.45 Mil/cmm (3.80-5.10) 10/12/17 15:34 Hgb 13.1 gm/dL (12-16) 10/12/17 15:34 Hct 39.8 % (41.0-60) L 10/12/17 15:34 MCV 89.4 fl (81-100) 10/12/17 15:34 MCH 29.5 pg (27.0-31.0) 10/12/17 15:34 MCHC Differential 33.0 pg (28.0-36.0) 10/12/17 15:34 RDW 14.4 % (11.5-20.0) 10/12/17 15:34 Plt Count 229 Th/cmm (150-400) 10/12/17 15:34 MPV 7.5 fl 10/12/17 15:34 Neutrophils % 78.7 % (40.0-80.0) 10/12/17 15:34 Lymphocytes % 12.1 % (20.0-50.0) L 10/12/17 15:34 Monocytes % 6.7 % (2.0-10.0) 10/12/17 15:34 Eosinophils % 0.7 % (0.0-5.0) 10/12/17 15:34 Basophils % 1.8 % (0.0-2.0) 10/12/17 15:34 Sodium 140 mEq/L (136-145) 10/12/17 15:34 Potassium 4.0 mEq/L (3.5-5.1) 10/12/17 15:34 Chloride 104 mEq/L (98-107) 10/12/17 15:34 Carbon Dioxide 26.6 mEq/L (21.0-31.0) 10/12/17 15:34 Anion Gap 13.4 (7.0-16.0) 10/12/17 15:34 BUN 11 mg/dL (7-25) 10/12/17 15:34 Creatinine 0.8 mg/dL (0.6-1.2) 10/12/17 15:34 Est GFR ( Amer) > 60.0 ml/min (>90) 10/12/17 15:34 Est GFR (Non-Af Amer) > 60.0 ml/min 10/12/17 15:34 BUN/Creatinine Ratio 13.8 10/12/17 15:34 Glucose 82 mg/dL (70-105) 10/12/17 15:34 Hemoglobin A1c % 5.1 % (4.0-6.0) 10/12/17 15:34 Calcium 9.6 mg/dL (8.6-10.3) 10/12/17 15:34 Total Bilirubin 0.3 mg/dL (0.3-1.0) 10/12/17 15:34 AST 16 U/L (13-39) 10/12/17 15:34 ALT 11 U/L (7-52) 10/12/17 15:34 Alkaline Phosphatase 103 U/L (34-104) 10/12/17 15:34 Total Protein 6.6 gm/dL (6.0-8.3) 10/12/17 15:34 Albumin 3.8 gm/dL (3.7-5.3) 10/12/17 15:34 Globulin 2.8 gm/dL 10/12/17 15:34 Albumin/Globulin Ratio 1.4 (1.0-1.8) 10/12/17 15:34 Triglycerides 62 mg/dL (<150) 10/12/17 15:34 Cholesterol 172 mg/dL (<200) 10/12/17 15:34 LDL Cholesterol Direct 79 mg/dL (75-193) 10/12/17 15:34 HDL Cholesterol 76 mg/dL (23-92) 10/12/17 15:34 TSH 0.60 uIU/ml (0.34-5.60) 10/12/17 15:34 Urine Source CLEAN C 10/12/17 15:45 Urine Color YELLOW 10/12/17 15:45 Urine Clarity CLEAR (CLEAR) 10/12/17 15:45 Urine pH 7.0 (4.6 - 8.0) 10/12/17 15:45 Ur Specific [place] 1.015 (1.005-1.030) 10/12/17 15:45 Urine Protein NEGATIVE mg/dL (NEGATIVE) 10/12/17 15:45 Urine Glucose (UA) NEGATIVE mg/dL (NEGATIVE) 10/12/17 15:45 Urine Ketones TRACE mg/dL (NEGATIVE) 10/12/17 15:45 Urine Blood NEGATIVE (NEGATIVE) 10/12/17 15:45 Urine Nitrate NEGATIVE (NEGATIVE) 10/12/17 15:45 Urine Bilirubin NEGATIVE (NEGATIVE) 10/12/17 15:45 Urine Urobilinogen 0.2 E.U./dL (0.2 - 1.0) 10/12/17 15:45 Ur Leukocyte Esterase MODERATE (NEGATIVE) H 10/12/17 15:45 Urine RBC NONE SEEN /hpf (0-5) 10/12/17 15:45 Urine WBC 6-10 /hpf (0-5) H 10/12/17 15:45 Ur Epithelial Cells NONE SEEN /lpf (FEW) 10/12/17 15:45 Urine Bacteria NONE SEEN /hpf (NONE SEEN) 10/12/17 15:45 Salicylates < 25.0 mg/L (30.0-100.0) L 10/12/17 15:34 Urine Opiates Screen NEGATIVE (NEGATIVE) 10/12/17 15:45 Urine Methadone Screen NEGATIVE (NEGATIVE) 10/12/17 15:45 Acetaminophen < 10.0 ug/mL (10.0-30.0) L 10/12/17 15:34 Ur Barbiturates Screen POSITIVE (NEGATIVE) H 10/12/17 15:45 Ur Tricyclics Screen NEGATIVE (NEGATIVE) 10/12/17 15:45 Ur Phencyclidine Scrn NEGATIVE (NEGATIVE) 10/12/17 15:45 Amphetamines Screen NEGATIVE (NEGATIVE) 10/12/17 15:45 U Methamphetamines Scrn NEGATIVE (NEGATIVE) 10/12/17 15:45 U Benzodiazepines Scrn POSITIVE (NEGATIVE) H 10/12/17 15:45 U Cocaine Metab Screen NEGATIVE (NEGATIVE) 10/12/17 15:45 U Cannabinoids Screen POSITIVE (NEGATIVE) H 10/12/17 15:45 Ethyl Alcohol < 10 mg/dL (0-10) 10/12/17 15:34 RPR NONREACTIVE (NONREACTIVE) 10/12/17 15:34 - Physical Exam Vitals and I&O: Vital Signs Temp 97.8 F 10/16/17 06:34 Pulse 74 10/16/17 09:06 Resp 20 10/16/17 06:34 BP 115/70 10/16/17 09:06 Pulse Ox 96 10/16/17 06:34 Intake & Output 10/15/17 10/16/17 10/16/17 18:59 06:59 18:59 Intake Total 1200 240 Balance 1200 240 Intake: Oral 1200 240 Other: # Voids 1 # Bowel Movements 1 Active Medications: Current Medications Acetaminophen (Tylenol) 650 mg PO Q4HR PRN PRN Reason: Mild Pain / Temp above 100 Stop: 12/11/17 17:55 Last Admin: 10/15/17 13:18 Dose: 650 mg Acetaminophen/Butalbital/Caffeine (Fioricet) 1 tab PO Q6H PRN PRN Reason: Headache Stop: 12/13/17 11:28 Al Hydrox/Mg Hydrox/Simethicone (Maalox) 30 ml PO Q4HR PRN PRN Reason: GI DISTRESS Stop: 12/11/17 17:55 Albuterol Sulfate (Albuterol 2.5mg/3ml Neb Ud) 2.5 mg HHN Q4HRT PRN PRN Reason: Shortness of Breath Stop: 12/11/17 17:41 Albuterol Sulfate (Albuterol 2.5mg/3ml Neb Ud) 2.5 mg HHN BIDRT [facility] Stop: 12/12/17 18:59 Artificial Tears (Artificial Tears Ophth Soln) 1 drop EACH EYE Q4H PRN PRN Reason: DRY/ITCHY EYE Stop: 12/14/17 12:52 Last Admin: 10/15/17 17:35 Dose: 1 drop Bisacodyl (Dulcolax 10 Mg Supp) 10 mg RC DAILY PRN PRN Reason: Constipation Stop: 12/11/17 17:37 Cholecalciferol (Vitamin D3) 1,000 iu PO DAILY [facility] Stop: 12/12/17 08:59 Last Admin: 10/16/17 09:03 Dose: 1,000 iu Diltiazem HCl (Cardizem) 30 mg PO BID [facility] Stop: 12/12/17 08:59 Last Admin: 10/16/17 09:06 Dose: 30 mg Docusate Sodium (Colace) 200 mg PO HS [facility] Stop: 12/11/17 20:59 Last Admin: 10/15/17 20:41 Dose: Not Given Fluoxetine HCl (Prozac) 20 mg PO DAILY [facility] PRN Reason: Protocol Stop: 12/13/17 08:59 Last Admin: 10/16/17 09:02 Dose: 20 mg Folic Acid (Folate) 5 mg PO DAILY [facility] Stop: 12/12/17 08:59 Last Admin: 10/16/17 09:03 Dose: 5 mg Gabapentin (Neurontin) 800 mg PO TID [facility] Stop: 12/12/17 23:33 Last Admin: 10/16/17 13:13 Dose: 800 mg Gemfibrozil (Lopid) 600 mg PO HS [facility] Stop: 12/11/17 20:59 Last Admin: 10/15/17 20:41 Dose: 600 mg Isosorbide Mononitrate (Imdur) 30 mg PO DAILY [facility] Stop: 12/12/17 08:59 Last Admin: 10/16/17 09:04 Dose: 30 mg Levothyroxine Sodium (Synthroid) 0.1 mg PO QDAC [facility] Stop: 12/12/17 07:29 Last Admin: 10/16/17 06:57 Dose: 0.1 mg Loratadine (Claritin) 10 mg PO DAILY [facility] Stop: 12/12/17 08:59 Last Admin: 10/16/17 09:03 Dose: 10 mg Lorazepam (Ativan) 0.5 mg PO Q4HR PRN; Protocol PRN Reason: Agitation Stop: 11/11/17 17:55 Last Admin: 10/15/17 22:09 Dose: 0.5 mg Magnesium Hydroxide (Milk Of Magnesia) 30 ml PO DAILY PRN PRN Reason: Constipation Stop: 12/11/17 17:41 Mirtazapine (Remeron) 15 mg PO [facility] PRN Reason: Protocol Stop: 12/11/17 20:59 Last Admin: 10/15/17 20:42 Dose: 15 mg Nitrofurantoin Macrocrystals (Macrobid) 100 mg PO BID [facility] PRN Reason: Protocol Stop: 10/20/17 16:59 Last Admin: 10/16/17 09:04 Dose: 100 mg Ondansetron HCl (Zofran Odt) 8 mg PO Q8H PRN PRN Reason: Nausea / Vomiting Oxycodone/Acetaminophen (Percocet 5/325mg Oral Tab) 1 tab PO Q4H PRN PRN Reason: Pain (Severe) Last Admin: 10/16/17 13:41 Dose: 1 tab Pantoprazole Sodium (Protonix) 40 mg PO QDAC [facility] Stop: 12/14/17 16:29 Last Admin: 10/16/17 06:58 Dose: 40 mg Rivaroxaban (Xarelto) 20 mg PO DAILY [facility] Stop: 12/12/17 08:59 Last Admin: 10/16/17 09:03 Dose: 20 mg Sodium Phosphate (Fleet Enema) 135 ml RC DAILY PRN PRN Reason: Constipation Stop: 12/13/17 08:59 Trazodone HCl (Desyrel) 25 mg PO HS [facility] PRN Reason: Protocol Stop: 12/14/17 20:59 Last Admin: 10/15/17 20:44 Dose: 25 mg Triamterene/HCTZ (Dyazide) 1 cap PO DAILY [facility] Stop: 12/12/17 08:59 Last Admin: 10/16/17 09:06 Dose: 1 cap Zolpidem Tartrate (Ambien) 5 mg PO HS PRN PRN Reason: Insomnia Stop: 12/11/17 17:55 General: alert HEENT: NC/AT, PERRLA Neck: Supple Lungs: CTAB Cardiovascular: RRR, Normal S1, Normal S2, without murmur Abdomen: soft, non-tender, non-distended Neurological: alert Internal Medicine Assmt/Plan - Assessment Assessment: acute uti agitation htn copd gerd hypothyroid - Plan Plan: continue oral levaquin fall precautions continue current plan of care Nutritional Asmnt/Malnutr-PDOC - Dietary Evaluation Malnutrition Findings (Please click <Entered> for more info): Nutritional Asmnt/Malnutrition Start: 10/16/17 10: 06 Text: Status: Active Freq: Document 10/16/17 10:06 RG (Rec: 10/16/17 10:10 RG [email or web address]) Nutritional Asmnt/Malnutrition Patient General Information Diagnosis Psychosis Pertinent Medical Hx/Surgical Hx dyslipidemia, GERD, HTN, CAD, asthma, COPD, hypothyroid Subjective Information Pt sitting up in bed at time of visit and stated she had a good appetite Current Diet Order/ Nutrition Support Vegetarian cardiac chooped Pertinent Medications maalox, vit D3, colace, folate , synthorid, MOM, zofran, protonix, fleet enema Pertinent Labs labs from 10/12: Na 140, K 4.0, Cl 104, CO2 26. 6, BUN 11, Cr 0.8, Ca 9.6, glucose 82 Nutritional Hx/Data Height 5 ft 9 in Height (Calculated Centimeters) 175.3 Current Weight (lbs) 170 lb Weight (Calculated Kilograms) 77.1 Weight (Calculated Grams) 10518.7 Body Mass Index (BMI) 25.1 Weight Status Overweight GI Symptoms GI Symptoms None Last BM 10/15 Cultural/Ethnic/Jewish Belief None noted Usual diet at home unknown Skin Integrity/Comment: jie score 17 Current %PO Good (75-100%) Estimated Nutritional Goals BEE in Kcals: Using Current wt Calories/Kcals/Kg 25-30kcals/kg Kcals Calculated 1925-2310kcals/day Protein: Using Current wt Protein g/kg/kg Protein Calculated 77g/day Fluid: ml per MD Nutritional Problem 1. Problem Problem No nutrition diagnosis at this time Intervention/Recommendation Comments Recommend continuing Cardiac Vegetarian diet Expected Outcomes/Goals Expected Outcomes/Goals PO intake >75% of meals
--- NOTE | 2017-10-16 22:20 | Progress Notes ---
DATE: 10/16/2017 PSYCHIATRIC PROGRESS NOTE SUBJECTIVE: Staff was spoken to. The patient is interviewed. Mood is noted to be irritable. Affect is constricted. Insight and judgment are noted to be still impaired. The patient is still isolative and withdrawn. The patient's major concern seems to be pain at this time. The patient's coping skills are noted to be very poor. ASSESSMENT: The patient is still depressed. PLAN: To continue the patient with the supportive therapy. Encouraged the patient to verbalize the concerns rather than to act out. The patient is stating that she cannot be on the Ambien. She wants only the temazepam because the Ambien makes her to have all the feared dreams. JOB# [id number]
[2017-10-17] MEDS: Pantoprazole 40 mg EC Tab PO SCH (07:01)
[2017-10-17] MEDS: APAP/Oxycodone 5/325mg Oral Tab PO PRN ×3 (07:01→20:13)
[2017-10-17] MEDS: Levothyroxine 0.1 Mg Tab PO SCH (07:01)
[2017-10-17] MEDS: APAP 325mg/Butalbital 50mg/Caff 40mg Tab PO PRN ×2 (08:50→14:20)
[2017-10-17] MEDS: Multivitamin w/ Minerals Tab PO SCH (08:51)
[2017-10-17] MEDS: Diltiazem 30 mg Tab PO SCH ×2 (09:37→17:55)
--- NOTE | 2017-10-17 15:39 | Internal Medicine Prog Note ---
Internal Medicine Subjective - Subjective Service Date: 10/17/17 Patient is:: awake Per staff patient has:: no adverse event Internal Medicine Objective - Results Result Diagrams: 10/12/17 15:34 10/12/17 15:34 Recent Labs: Laboratory Last Values WBC 6.5 Th/cmm (4.8-10.8) 10/12/17 15:34 RBC 4.45 Mil/cmm (3.80-5.10) 10/12/17 15:34 Hgb 13.1 gm/dL (12-16) 10/12/17 15:34 Hct 39.8 % (41.0-60) L 10/12/17 15:34 MCV 89.4 fl (81-100) 10/12/17 15:34 MCH 29.5 pg (27.0-31.0) 10/12/17 15:34 MCHC Differential 33.0 pg (28.0-36.0) 10/12/17 15:34 RDW 14.4 % (11.5-20.0) 10/12/17 15:34 Plt Count 229 Th/cmm (150-400) 10/12/17 15:34 MPV 7.5 fl 10/12/17 15:34 Neutrophils % 78.7 % (40.0-80.0) 10/12/17 15:34 Lymphocytes % 12.1 % (20.0-50.0) L 10/12/17 15:34 Monocytes % 6.7 % (2.0-10.0) 10/12/17 15:34 Eosinophils % 0.7 % (0.0-5.0) 10/12/17 15:34 Basophils % 1.8 % (0.0-2.0) 10/12/17 15:34 Sodium 140 mEq/L (136-145) 10/12/17 15:34 Potassium 4.0 mEq/L (3.5-5.1) 10/12/17 15:34 Chloride 104 mEq/L (98-107) 10/12/17 15:34 Carbon Dioxide 26.6 mEq/L (21.0-31.0) 10/12/17 15:34 Anion Gap 13.4 (7.0-16.0) 10/12/17 15:34 BUN 11 mg/dL (7-25) 10/12/17 15:34 Creatinine 0.8 mg/dL (0.6-1.2) 10/12/17 15:34 Est GFR ( Amer) > 60.0 ml/min (>90) 10/12/17 15:34 Est GFR (Non-Af Amer) > 60.0 ml/min 10/12/17 15:34 BUN/Creatinine Ratio 13.8 10/12/17 15:34 Glucose 82 mg/dL (70-105) 10/12/17 15:34 Hemoglobin A1c % 5.1 % (4.0-6.0) 10/12/17 15:34 Calcium 9.6 mg/dL (8.6-10.3) 10/12/17 15:34 Total Bilirubin 0.3 mg/dL (0.3-1.0) 10/12/17 15:34 AST 16 U/L (13-39) 10/12/17 15:34 ALT 11 U/L (7-52) 10/12/17 15:34 Alkaline Phosphatase 103 U/L (34-104) 10/12/17 15:34 Total Protein 6.6 gm/dL (6.0-8.3) 10/12/17 15:34 Albumin 3.8 gm/dL (3.7-5.3) 10/12/17 15:34 Globulin 2.8 gm/dL 10/12/17 15:34 Albumin/Globulin Ratio 1.4 (1.0-1.8) 10/12/17 15:34 Triglycerides 62 mg/dL (<150) 10/12/17 15:34 Cholesterol 172 mg/dL (<200) 10/12/17 15:34 LDL Cholesterol Direct 79 mg/dL (75-193) 10/12/17 15:34 HDL Cholesterol 76 mg/dL (23-92) 10/12/17 15:34 TSH 0.60 uIU/ml (0.34-5.60) 10/12/17 15:34 Urine Source CLEAN C 10/12/17 15:45 Urine Color YELLOW 10/12/17 15:45 Urine Clarity CLEAR (CLEAR) 10/12/17 15:45 Urine pH 7.0 (4.6 - 8.0) 10/12/17 15:45 Ur Specific [place] 1.015 (1.005-1.030) 10/12/17 15:45 Urine Protein NEGATIVE mg/dL (NEGATIVE) 10/12/17 15:45 Urine Glucose (UA) NEGATIVE mg/dL (NEGATIVE) 10/12/17 15:45 Urine Ketones TRACE mg/dL (NEGATIVE) 10/12/17 15:45 Urine Blood NEGATIVE (NEGATIVE) 10/12/17 15:45 Urine Nitrate NEGATIVE (NEGATIVE) 10/12/17 15:45 Urine Bilirubin NEGATIVE (NEGATIVE) 10/12/17 15:45 Urine Urobilinogen 0.2 E.U./dL (0.2 - 1.0) 10/12/17 15:45 Ur Leukocyte Esterase MODERATE (NEGATIVE) H 10/12/17 15:45 Urine RBC NONE SEEN /hpf (0-5) 10/12/17 15:45 Urine WBC 6-10 /hpf (0-5) H 10/12/17 15:45 Ur Epithelial Cells NONE SEEN /lpf (FEW) 10/12/17 15:45 Urine Bacteria NONE SEEN /hpf (NONE SEEN) 10/12/17 15:45 Salicylates < 25.0 mg/L (30.0-100.0) L 10/12/17 15:34 Urine Opiates Screen NEGATIVE (NEGATIVE) 10/12/17 15:45 Urine Methadone Screen NEGATIVE (NEGATIVE) 10/12/17 15:45 Acetaminophen < 10.0 ug/mL (10.0-30.0) L 10/12/17 15:34 Ur Barbiturates Screen POSITIVE (NEGATIVE) H 10/12/17 15:45 Ur Tricyclics Screen NEGATIVE (NEGATIVE) 10/12/17 15:45 Ur Phencyclidine Scrn NEGATIVE (NEGATIVE) 10/12/17 15:45 Amphetamines Screen NEGATIVE (NEGATIVE) 10/12/17 15:45 U Methamphetamines Scrn NEGATIVE (NEGATIVE) 10/12/17 15:45 U Benzodiazepines Scrn POSITIVE (NEGATIVE) H 10/12/17 15:45 U Cocaine Metab Screen NEGATIVE (NEGATIVE) 10/12/17 15:45 U Cannabinoids Screen POSITIVE (NEGATIVE) H 10/12/17 15:45 Ethyl Alcohol < 10 mg/dL (0-10) 10/12/17 15:34 RPR NONREACTIVE (NONREACTIVE) 10/12/17 15:34 - Physical Exam Vitals and I&O: Vital Signs Temp 97.9 F 10/17/17 06:49 Pulse 87 10/17/17 09:37 Resp 19 10/17/17 06:49 BP 154/83 10/17/17 09:37 Pulse Ox 96 10/17/17 06:49 Intake & Output 10/16/17 10/17/17 10/17/17 18:59 06:59 18:59 Intake Total 1600 120 Balance 1600 120 Intake: Oral 1600 120 Other: # Voids 4 3 # Bowel Movements 0 Active Medications: Current Medications Acetaminophen (Tylenol) 650 mg PO Q4HR PRN PRN Reason: Mild Pain / Temp above 100 Stop: 12/11/17 17:55 Last Admin: 10/15/17 13:18 Dose: 650 mg Acetaminophen/Butalbital/Caffeine (Fioricet) 1 tab PO Q6H PRN PRN Reason: Headache Stop: 12/13/17 11:28 Last Admin: 10/17/17 14:20 Dose: 1 tab Al Hydrox/Mg Hydrox/Simethicone (Maalox) 30 ml PO Q4HR PRN PRN Reason: GI DISTRESS Stop: 12/11/17 17:55 Albuterol Sulfate (Albuterol 2.5mg/3ml Neb Ud) 2.5 mg HHN Q4HRT PRN PRN Reason: Shortness of Breath Stop: 12/11/17 17:41 Albuterol Sulfate (Albuterol 2.5mg/3ml Neb Ud) 2.5 mg HHN BIDRT [facility] Stop: 12/12/17 18:59 Artificial Tears (Artificial Tears Ophth Soln) 1 drop EACH EYE Q4H PRN PRN Reason: DRY/ITCHY EYE Stop: 12/14/17 12:52 Last Admin: 10/15/17 17:35 Dose: 1 drop Bisacodyl (Dulcolax 10 Mg Supp) 10 mg RC DAILY PRN PRN Reason: Constipation Stop: 12/11/17 17:37 Cholecalciferol (Vitamin D3) 1,000 iu PO DAILY [facility] Stop: 12/12/17 08:59 Last Admin: 10/17/17 08:54 Dose: 1,000 iu Diltiazem HCl (Cardizem) 30 mg PO BID [facility] Stop: 12/12/17 08:59 Last Admin: 10/17/17 09:37 Dose: 30 mg Docusate Sodium (Colace) 200 mg PO HS [facility] Stop: 12/11/17 20:59 Last Admin: 10/16/17 21:12 Dose: 200 mg Fluoxetine HCl (Prozac) 20 mg PO DAILY [facility] PRN Reason: Protocol Stop: 12/13/17 08:59 Last Admin: 10/17/17 08:51 Dose: 20 mg Folic Acid (Folate) 5 mg PO DAILY [facility] Stop: 12/12/17 08:59 Last Admin: 10/17/17 08:51 Dose: 5 mg Gabapentin (Neurontin) 800 mg PO TID [facility] Stop: 12/12/17 23:33 Last Admin: 10/17/17 13:10 Dose: 800 mg Gemfibrozil (Lopid) 600 mg PO HS [facility] Stop: 12/11/17 20:59 Last Admin: 10/16/17 21:13 Dose: 600 mg Isosorbide Mononitrate (Imdur) 30 mg PO DAILY [facility] Stop: 12/12/17 08:59 Last Admin: 10/17/17 08:53 Dose: 30 mg Levothyroxine Sodium (Synthroid) 0.1 mg PO QDAC [facility] Stop: 12/12/17 07:29 Last Admin: 10/17/17 07:01 Dose: 0.1 mg Loratadine (Claritin) 10 mg PO DAILY [facility] Stop: 12/12/17 08:59 Last Admin: 10/17/17 08:54 Dose: 10 mg Lorazepam (Ativan) 0.5 mg PO Q4HR PRN; Protocol PRN Reason: Agitation Stop: 11/11/17 17:55 Last Admin: 10/17/17 08:54 Dose: 0.5 mg Magnesium Hydroxide (Milk Of Magnesia) 30 ml PO DAILY PRN PRN Reason: Constipation Stop: 12/11/17 17:41 Mirtazapine (Remeron) 15 mg PO HS [facility] PRN Reason: Protocol Stop: 12/11/17 20:59 Last Admin: 10/16/17 21:13 Dose: 15 mg Nitrofurantoin Macrocrystals (Macrobid) 100 mg PO BID [facility] PRN Reason: Protocol Stop: 10/20/17 16:59 Last Admin: 10/17/17 08:50 Dose: 100 mg Ondansetron HCl (Zofran Odt) 8 mg PO Q8H PRN PRN Reason: Nausea / Vomiting Oxycodone/Acetaminophen (Percocet 5/325mg Oral Tab) 1 tab PO Q4H PRN PRN Reason: Pain (Severe) Last Admin: 10/17/17 14:20 Dose: 1 tab Pantoprazole Sodium (Protonix) 40 mg PO QDAC [facility] Stop: 12/14/17 16:29 Last Admin: 10/17/17 07:01 Dose: 40 mg Rivaroxaban (Xarelto) 20 mg PO DAILY [facility] Stop: 12/12/17 08:59 Last Admin: 10/17/17 08:52 Dose: 20 mg Sodium Phosphate (Fleet Enema) 135 ml RC DAILY PRN PRN Reason: Constipation Stop: 12/13/17 08:59 Temazepam (Restoril) 15 mg PO HS PRN; Protocol PRN Reason: Insomnia Stop: 12/15/17 14:08 Trazodone HCl (Desyrel) 25 mg PO HS [facility] PRN Reason: Protocol Stop: 12/14/17 20:59 Last Admin: 10/16/17 21:13 Dose: 25 mg Triamterene/HCTZ (Dyazide) 1 cap PO DAILY [facility] Stop: 12/12/17 08:59 Last Admin: 10/17/17 09:37 Dose: 1 cap General: alert HEENT: NC/AT, PERRLA Neck: Supple Lungs: CTAB Cardiovascular: RRR, Normal S1, Normal S2, without murmur Abdomen: soft, non-tender, non-distended Neurological: alert Internal Medicine Assmt/Plan - Assessment Assessment: acute uti agitation htn copd gerd hypothyroid - Plan Plan: continue oral levaquin fall precautions continue current plan of care Nutritional Asmnt/Malnutr-PDOC - Dietary Evaluation Malnutrition Findings (Please click <Entered> for more info): Nutritional Asmnt/Malnutrition Start: 10/16/17 10: 06 Text: Status: Active Freq: Document 10/16/17 10:06 RG (Rec: 10/16/17 10:10 RG [email or web address] FN) Nutritional Asmnt/Malnutrition Patient General Information Diagnosis Psychosis Pertinent Medical Hx/Surgical Hx dyslipidemia, GERD, HTN, CAD, asthma, COPD, hypothyroid Subjective Information Pt sitting up in bed at time of visit and stated she had a good appetite Current Diet Order/ Nutrition Support Vegetarian cardiac chooped Pertinent Medications maalox, vit D3, colace, folate , synthorid, MOM, zofran, protonix, fleet enema Pertinent Labs labs from 10/12: Na 140, K 4.0, Cl 104, CO2 26. 6, BUN 11, Cr 0.8, Ca 9.6, glucose 82 Nutritional Hx/Data Height 5 ft 9 in Height (Calculated Centimeters) 175.3 Current Weight (lbs) 170 lb Weight (Calculated Kilograms) 77.1 Weight (Calculated Grams) 37804.7 Body Mass Index (BMI) 25.1 Weight Status Overweight GI Symptoms GI Symptoms None Last BM 10/15 Cultural/Ethnic/Holiness Belief None noted Usual diet at home unknown Skin Integrity/Comment: jie score 17 Current %PO Good (75-100%) Estimated Nutritional Goals BEE in Kcals: Using Current wt Calories/Kcals/Kg 25-30kcals/kg Kcals Calculated 1925-2310kcals/day Protein: Using Current wt Protein g/kg/kg Protein Calculated 77g/day Fluid: ml per MD Nutritional Problem 1. Problem Problem No nutrition diagnosis at this time Intervention/Recommendation Comments Recommend continuing Cardiac Vegetarian diet Expected Outcomes/Goals Expected Outcomes/Goals PO intake >75% of meals
--- NOTE | 2017-10-17 17:07 | Progress Notes ---
DATE: 10/17/2017 Staff was spoken to. The patient is interviewed. Mood is noted to be mildly depressed. Affect is appropriate. The patient states that her pain is resolving at this time. Coping skills are noted to be improving. No side effects to the medications are noted. The patient has been able to verbalize the concerns rather than to act out. JOB# [id number]
[2017-10-18] MEDS: Pantoprazole 40 mg EC Tab PO SCH ×2 (06:50→09:05)
[2017-10-18] MEDS: APAP/Oxycodone 5/325mg Oral Tab PO PRN ×3 (06:50→21:35)
[2017-10-18] MEDS: Levothyroxine 0.1 Mg Tab PO SCH (06:51)
[2017-10-18] MEDS: Diltiazem 30 mg Tab PO SCH ×2 (09:04→17:28)
[2017-10-18] MEDS: Multivitamin w/ Minerals Tab PO SCH (09:21)
--- NOTE | 2017-10-18 15:32 | Internal Medicine Prog Note ---
Internal Medicine Subjective - Subjective Patient seen and examined:: with staff, chart reviewed Patient is:: awake, verbal, interactive Per staff patient has:: no adverse event, no episodes of fall, agitated, tolerating meds Internal Medicine Objective - Results Result Diagrams: 10/12/17 15:34 10/12/17 15:34 Recent Labs: Laboratory Last Values WBC 6.5 Th/cmm (4.8-10.8) 10/12/17 15:34 RBC 4.45 Mil/cmm (3.80-5.10) 10/12/17 15:34 Hgb 13.1 gm/dL (12-16) 10/12/17 15:34 Hct 39.8 % (41.0-60) L 10/12/17 15:34 MCV 89.4 fl (81-100) 10/12/17 15:34 MCH 29.5 pg (27.0-31.0) 10/12/17 15:34 MCHC Differential 33.0 pg (28.0-36.0) 10/12/17 15:34 RDW 14.4 % (11.5-20.0) 10/12/17 15:34 Plt Count 229 Th/cmm (150-400) 10/12/17 15:34 MPV 7.5 fl 10/12/17 15:34 Neutrophils % 78.7 % (40.0-80.0) 10/12/17 15:34 Lymphocytes % 12.1 % (20.0-50.0) L 10/12/17 15:34 Monocytes % 6.7 % (2.0-10.0) 10/12/17 15:34 Eosinophils % 0.7 % (0.0-5.0) 10/12/17 15:34 Basophils % 1.8 % (0.0-2.0) 10/12/17 15:34 Sodium 140 mEq/L (136-145) 10/12/17 15:34 Potassium 4.0 mEq/L (3.5-5.1) 10/12/17 15:34 Chloride 104 mEq/L (98-107) 10/12/17 15:34 Carbon Dioxide 26.6 mEq/L (21.0-31.0) 10/12/17 15:34 Anion Gap 13.4 (7.0-16.0) 10/12/17 15:34 BUN 11 mg/dL (7-25) 10/12/17 15:34 Creatinine 0.8 mg/dL (0.6-1.2) 10/12/17 15:34 Est GFR ( Amer) > 60.0 ml/min (>90) 10/12/17 15:34 Est GFR (Non-Af Amer) > 60.0 ml/min 10/12/17 15:34 BUN/Creatinine Ratio 13.8 10/12/17 15:34 Glucose 82 mg/dL (70-105) 10/12/17 15:34 Hemoglobin A1c % 5.1 % (4.0-6.0) 10/12/17 15:34 Calcium 9.6 mg/dL (8.6-10.3) 10/12/17 15:34 Total Bilirubin 0.3 mg/dL (0.3-1.0) 10/12/17 15:34 AST 16 U/L (13-39) 10/12/17 15:34 ALT 11 U/L (7-52) 10/12/17 15:34 Alkaline Phosphatase 103 U/L (34-104) 10/12/17 15:34 Total Protein 6.6 gm/dL (6.0-8.3) 10/12/17 15:34 Albumin 3.8 gm/dL (3.7-5.3) 10/12/17 15:34 Globulin 2.8 gm/dL 10/12/17 15:34 Albumin/Globulin Ratio 1.4 (1.0-1.8) 10/12/17 15:34 Triglycerides 62 mg/dL (<150) 10/12/17 15:34 Cholesterol 172 mg/dL (<200) 10/12/17 15:34 LDL Cholesterol Direct 79 mg/dL (75-193) 10/12/17 15:34 HDL Cholesterol 76 mg/dL (23-92) 10/12/17 15:34 TSH 0.60 uIU/ml (0.34-5.60) 10/12/17 15:34 Urine Source CLEAN C 10/12/17 15:45 Urine Color YELLOW 10/12/17 15:45 Urine Clarity CLEAR (CLEAR) 10/12/17 15:45 Urine pH 7.0 (4.6 - 8.0) 10/12/17 15:45 Ur Specific [place] 1.015 (1.005-1.030) 10/12/17 15:45 Urine Protein NEGATIVE mg/dL (NEGATIVE) 10/12/17 15:45 Urine Glucose (UA) NEGATIVE mg/dL (NEGATIVE) 10/12/17 15:45 Urine Ketones TRACE mg/dL (NEGATIVE) 10/12/17 15:45 Urine Blood NEGATIVE (NEGATIVE) 10/12/17 15:45 Urine Nitrate NEGATIVE (NEGATIVE) 10/12/17 15:45 Urine Bilirubin NEGATIVE (NEGATIVE) 10/12/17 15:45 Urine Urobilinogen 0.2 E.U./dL (0.2 - 1.0) 10/12/17 15:45 Ur Leukocyte Esterase MODERATE (NEGATIVE) H 10/12/17 15:45 Urine RBC NONE SEEN /hpf (0-5) 10/12/17 15:45 Urine WBC 6-10 /hpf (0-5) H 10/12/17 15:45 Ur Epithelial Cells NONE SEEN /lpf (FEW) 10/12/17 15:45 Urine Bacteria NONE SEEN /hpf (NONE SEEN) 10/12/17 15:45 Salicylates < 25.0 mg/L (30.0-100.0) L 10/12/17 15:34 Urine Opiates Screen NEGATIVE (NEGATIVE) 10/12/17 15:45 Urine Methadone Screen NEGATIVE (NEGATIVE) 10/12/17 15:45 Acetaminophen < 10.0 ug/mL (10.0-30.0) L 10/12/17 15:34 Ur Barbiturates Screen POSITIVE (NEGATIVE) H 10/12/17 15:45 Ur Tricyclics Screen NEGATIVE (NEGATIVE) 10/12/17 15:45 Ur Phencyclidine Scrn NEGATIVE (NEGATIVE) 10/12/17 15:45 Amphetamines Screen NEGATIVE (NEGATIVE) 10/12/17 15:45 U Methamphetamines Scrn NEGATIVE (NEGATIVE) 10/12/17 15:45 U Benzodiazepines Scrn POSITIVE (NEGATIVE) H 10/12/17 15:45 U Cocaine Metab Screen NEGATIVE (NEGATIVE) 10/12/17 15:45 U Cannabinoids Screen POSITIVE (NEGATIVE) H 10/12/17 15:45 Ethyl Alcohol < 10 mg/dL (0-10) 10/12/17 15:34 RPR NONREACTIVE (NONREACTIVE) 10/12/17 15:34 - Physical Exam Vitals and I&O: Vital Signs Temp 97.2 F 10/18/17 06:45 Pulse 98 10/18/17 09:18 Resp 20 10/18/17 06:45 BP 128/93 10/18/17 09:22 Pulse Ox 97 10/18/17 06:45 Intake & Output 10/17/17 10/18/17 10/18/17 18:59 06:59 18:59 Intake Total 1600 240 Balance 1600 240 Intake: Oral 1600 240 Other: # Voids 5 2 # Bowel Movements 1 0 Active Medications: Current Medications Acetaminophen (Tylenol) 650 mg PO Q4HR PRN PRN Reason: Mild Pain / Temp above 100 Stop: 12/11/17 17:55 Last Admin: 10/15/17 13:18 Dose: 650 mg Acetaminophen/Butalbital/Caffeine (Fioricet) 1 tab PO Q6H PRN PRN Reason: Headache Stop: 12/13/17 11:28 Last Admin: 10/17/17 14:20 Dose: 1 tab Al Hydrox/Mg Hydrox/Simethicone (Maalox) 30 ml PO Q4HR PRN PRN Reason: GI DISTRESS Stop: 12/11/17 17:55 Albuterol Sulfate (Albuterol 2.5mg/3ml Neb Ud) 2.5 mg HHN Q4HRT PRN PRN Reason: Shortness of Breath Stop: 12/11/17 17:41 Albuterol Sulfate (Albuterol 2.5mg/3ml Neb Ud) 2.5 mg HHN BIDRT [facility] Stop: 12/12/17 18:59 Artificial Tears (Artificial Tears Ophth Soln) 1 drop EACH EYE Q4H PRN PRN Reason: DRY/ITCHY EYE Stop: 12/14/17 12:52 Last Admin: 10/15/17 17:35 Dose: 1 drop Bisacodyl (Dulcolax 10 Mg Supp) 10 mg RC DAILY PRN PRN Reason: Constipation Stop: 12/11/17 17:37 Cholecalciferol (Vitamin D3) 1,000 iu PO DAILY [facility] Stop: 12/12/17 08:59 Last Admin: 10/18/17 09:04 Dose: 1,000 iu Diltiazem HCl (Cardizem) 30 mg PO BID [facility] Stop: 12/12/17 08:59 Last Admin: 10/18/17 09:04 Dose: 30 mg Docusate Sodium (Colace) 200 mg PO HS [facility] Stop: 12/11/17 20:59 Last Admin: 10/17/17 20:12 Dose: 200 mg Fluoxetine HCl (Prozac) 20 mg PO DAILY [facility] PRN Reason: Protocol Stop: 12/13/17 08:59 Last Admin: 10/18/17 09:20 Dose: 20 mg Folic Acid (Folate) 5 mg PO DAILY [facility] Stop: 12/12/17 08:59 Last Admin: 10/18/17 09:17 Dose: 5 mg Gabapentin (Neurontin) 800 mg PO TID [facility] Stop: 12/12/17 23:33 Last Admin: 10/18/17 09:20 Dose: 800 mg Gemfibrozil (Lopid) 600 mg PO HS [facility] Stop: 12/11/17 20:59 Last Admin: 10/17/17 20:13 Dose: 600 mg Isosorbide Mononitrate (Imdur) 30 mg PO DAILY [facility] Stop: 12/12/17 08:59 Last Admin: 10/18/17 09:18 Dose: 30 mg Levothyroxine Sodium (Synthroid) 0.1 mg PO QDAC [facility] Stop: 12/12/17 07:29 Last Admin: 10/18/17 06:51 Dose: 0.1 mg Loratadine (Claritin) 10 mg PO DAILY [facility] Stop: 12/12/17 08:59 Last Admin: 10/18/17 09:21 Dose: 10 mg Lorazepam (Ativan) 0.5 mg PO Q4HR PRN; Protocol PRN Reason: Agitation Stop: 11/11/17 17:55 Last Admin: 10/18/17 11:03 Dose: 0.5 mg Magnesium Hydroxide (Milk Of Magnesia) 30 ml PO DAILY PRN PRN Reason: Constipation Stop: 12/11/17 17:41 Mirtazapine (Remeron) 15 mg PO [facility] PRN Reason: Protocol Stop: 12/11/17 20:59 Last Admin: 10/17/17 20:13 Dose: 15 mg Nitrofurantoin Macrocrystals (Macrobid) 100 mg PO BID [facility] PRN Reason: Protocol Stop: 10/20/17 16:59 Last Admin: 10/18/17 09:20 Dose: 100 mg Ondansetron HCl (Zofran Odt) 8 mg PO Q8H PRN PRN Reason: Nausea / Vomiting Oxycodone/Acetaminophen (Percocet 5/325mg Oral Tab) 1 tab PO Q4H PRN PRN Reason: Pain (Severe) Last Admin: 10/18/17 06:50 Dose: 1 tab Pantoprazole Sodium (Protonix) 40 mg PO QDAC [facility] Stop: 12/14/17 16:29 Last Admin: 10/18/17 09:05 Dose: Not Given Rivaroxaban (Xarelto) 20 mg PO DAILY [facility] Stop: 12/12/17 08:59 Last Admin: 10/18/17 09:21 Dose: 20 mg Sodium Phosphate (Fleet Enema) 135 ml RC DAILY PRN PRN Reason: Constipation Stop: 12/13/17 08:59 Temazepam (Restoril) 15 mg PO HS PRN; Protocol PRN Reason: Insomnia Stop: 12/15/17 14:08 Trazodone HCl (Desyrel) 25 mg PO HS [facility] PRN Reason: Protocol Stop: 12/14/17 20:59 Last Admin: 10/17/17 20:13 Dose: 25 mg Triamterene/HCTZ (Dyazide) 1 cap PO DAILY [facility] Stop: 12/12/17 08:59 Last Admin: 10/18/17 09:22 Dose: 1 cap General: alert HEENT: NC/AT, PERRLA Neck: Supple Lungs: CTAB Cardiovascular: RRR, Normal S1, Normal S2, without murmur Abdomen: soft, non-tender, non-distended Neurological: alert Internal Medicine Assmt/Plan - Assessment Assessment: - Assessment Assessment: acute uti agitation htn copd gerd hypothyroid - Plan Plan: continue oral levaquin fall precautions continue current plan of care - Plan Plan: cpm Nutritional Asmnt/Malnutr-PDOC - Dietary Evaluation Malnutrition Findings (Please click <Entered> for more info): Nutritional Asmnt/Malnutrition Start: 10/16/17 10: 06 Text: Status: Active Freq: Document 10/16/17 10:06 RG (Rec: 10/16/17 10:10 [facility] Nutritional Asmnt/Malnutrition Patient General Information Diagnosis Psychosis Pertinent Medical Hx/Surgical Hx dyslipidemia, GERD, HTN, CAD, asthma, COPD, hypothyroid Subjective Information Pt sitting up in bed at time of visit and stated she had a good appetite Current Diet Order/ Nutrition Support Vegetarian cardiac chooped Pertinent Medications maalox, vit D3, colace, folate , synthorid, MOM, zofran, protonix, fleet enema Pertinent Labs labs from 10/12: Na 140, K 4.0, Cl 104, CO2 26. 6, BUN 11, Cr 0.8, Ca 9.6, glucose 82 Nutritional Hx/Data Height 1.75 m Height (Calculated Centimeters) 175.3 Current Weight (lbs) 77.111 kg Weight (Calculated Kilograms) 77.1 Weight (Calculated Grams) 78318.7 Body Mass Index (BMI) 25.1 Weight Status Overweight GI Symptoms GI Symptoms None Last BM 10/15 Cultural/Ethnic/Alevism Belief None noted Usual diet at home unknown Skin Integrity/Comment: jie score 17 Current %PO Good (75-100%) Estimated Nutritional Goals BEE in Kcals: Using Current wt Calories/Kcals/Kg 25-30kcals/kg Kcals Calculated 1925-2310kcals/day Protein: Using Current wt Protein g/kg/kg Protein Calculated 77g/day Fluid: ml per MD Nutritional Problem 1. Problem Problem No nutrition diagnosis at this time Intervention/Recommendation Comments Recommend continuing Cardiac Vegetarian diet Expected Outcomes/Goals Expected Outcomes/Goals PO intake >75% of meals
[2017-10-18] MEDS: APAP 325mg/Butalbital 50mg/Caff 40mg Tab PO PRN ×2 (15:36→21:10)
--- NOTE | 2017-10-19 01:43 | Progress Notes ---
DATE: 10/18/2017 PSYCHIATRIC PROGRESS NOTE SUBJECTIVE: Staff was spoken to. The patient is interviewed. Mood is noted to be irritable. Affect is constricted. Coping skills are noted to be poor. The patient's sleep and appetite are also noted to be very poor. The patient has been having difficult time. The patient is still presenting with the depression symptoms and is stating that she has been having trouble with the pain and the patient has been stating that she was not able to tolerate the Ambien and hence the patient has been placed on the Restoril. The patient is currently medicated with the mirtazapine as well as the trazodone to help to sleep and for the depression. ASSESSMENT: The patient is still depressed. PLAN: To continue the patient with the supportive therapy, encouraged the patient to verbalize the concerns rather than to act out. JOB# [id number]
[2017-10-19] MEDS: Levothyroxine 0.1 Mg Tab PO SCH (06:38)
[2017-10-19] MEDS: Pantoprazole 40 mg EC Tab PO SCH (06:38)
[2017-10-19] MEDS: APAP/Oxycodone 5/325mg Oral Tab PO PRN ×3 (06:51→20:44)
[2017-10-19] MEDS: Multivitamin w/ Minerals Tab PO SCH (09:05)
[2017-10-19] MEDS: Diltiazem 30 mg Tab PO SCH ×2 (09:15→17:33)
--- NOTE | 2017-10-19 10:49 | Internal Medicine Prog Note ---
Internal Medicine Subjective - Subjective Service Date: 10/19/17 Patient is:: awake, verbal, interactive Per staff patient has:: no adverse event, no episodes of fall, agitated, tolerating meds Internal Medicine Objective - Results Result Diagrams: 10/12/17 15:34 10/12/17 15:34 Recent Labs: Laboratory Last Values WBC 6.5 Th/cmm (4.8-10.8) 10/12/17 15:34 RBC 4.45 Mil/cmm (3.80-5.10) 10/12/17 15:34 Hgb 13.1 gm/dL (12-16) 10/12/17 15:34 Hct 39.8 % (41.0-60) L 10/12/17 15:34 MCV 89.4 fl (81-100) 10/12/17 15:34 MCH 29.5 pg (27.0-31.0) 10/12/17 15:34 MCHC Differential 33.0 pg (28.0-36.0) 10/12/17 15:34 RDW 14.4 % (11.5-20.0) 10/12/17 15:34 Plt Count 229 Th/cmm (150-400) 10/12/17 15:34 MPV 7.5 fl 10/12/17 15:34 Neutrophils % 78.7 % (40.0-80.0) 10/12/17 15:34 Lymphocytes % 12.1 % (20.0-50.0) L 10/12/17 15:34 Monocytes % 6.7 % (2.0-10.0) 10/12/17 15:34 Eosinophils % 0.7 % (0.0-5.0) 10/12/17 15:34 Basophils % 1.8 % (0.0-2.0) 10/12/17 15:34 Sodium 140 mEq/L (136-145) 10/12/17 15:34 Potassium 4.0 mEq/L (3.5-5.1) 10/12/17 15:34 Chloride 104 mEq/L (98-107) 10/12/17 15:34 Carbon Dioxide 26.6 mEq/L (21.0-31.0) 10/12/17 15:34 Anion Gap 13.4 (7.0-16.0) 10/12/17 15:34 BUN 11 mg/dL (7-25) 10/12/17 15:34 Creatinine 0.8 mg/dL (0.6-1.2) 10/12/17 15:34 Est GFR ( Amer) > 60.0 ml/min (>90) 10/12/17 15:34 Est GFR (Non-Af Amer) > 60.0 ml/min 10/12/17 15:34 BUN/Creatinine Ratio 13.8 10/12/17 15:34 Glucose 82 mg/dL (70-105) 10/12/17 15:34 Hemoglobin A1c % 5.1 % (4.0-6.0) 10/12/17 15:34 Calcium 9.6 mg/dL (8.6-10.3) 10/12/17 15:34 Total Bilirubin 0.3 mg/dL (0.3-1.0) 10/12/17 15:34 AST 16 U/L (13-39) 10/12/17 15:34 ALT 11 U/L (7-52) 10/12/17 15:34 Alkaline Phosphatase 103 U/L (34-104) 10/12/17 15:34 Total Protein 6.6 gm/dL (6.0-8.3) 10/12/17 15:34 Albumin 3.8 gm/dL (3.7-5.3) 10/12/17 15:34 Globulin 2.8 gm/dL 10/12/17 15:34 Albumin/Globulin Ratio 1.4 (1.0-1.8) 10/12/17 15:34 Triglycerides 62 mg/dL (<150) 10/12/17 15:34 Cholesterol 172 mg/dL (<200) 10/12/17 15:34 LDL Cholesterol Direct 79 mg/dL (75-193) 10/12/17 15:34 HDL Cholesterol 76 mg/dL (23-92) 10/12/17 15:34 TSH 0.60 uIU/ml (0.34-5.60) 10/12/17 15:34 Urine Source CLEAN C 10/12/17 15:45 Urine Color YELLOW 10/12/17 15:45 Urine Clarity CLEAR (CLEAR) 10/12/17 15:45 Urine pH 7.0 (4.6 - 8.0) 10/12/17 15:45 Ur Specific [employer] 1.015 (1.005-1.030) 10/12/17 15:45 Urine Protein NEGATIVE mg/dL (NEGATIVE) 10/12/17 15:45 Urine Glucose (UA) NEGATIVE mg/dL (NEGATIVE) 10/12/17 15:45 Urine Ketones TRACE mg/dL (NEGATIVE) 10/12/17 15:45 Urine Blood NEGATIVE (NEGATIVE) 10/12/17 15:45 Urine Nitrate NEGATIVE (NEGATIVE) 10/12/17 15:45 Urine Bilirubin NEGATIVE (NEGATIVE) 10/12/17 15:45 Urine Urobilinogen 0.2 E.U./dL (0.2 - 1.0) 10/12/17 15:45 Ur Leukocyte Esterase MODERATE (NEGATIVE) H 10/12/17 15:45 Urine RBC NONE SEEN /hpf (0-5) 10/12/17 15:45 Urine WBC 6-10 /hpf (0-5) H 10/12/17 15:45 Ur Epithelial Cells NONE SEEN /lpf (FEW) 10/12/17 15:45 Urine Bacteria NONE SEEN /hpf (NONE SEEN) 10/12/17 15:45 Salicylates < 25.0 mg/L (30.0-100.0) L 10/12/17 15:34 Urine Opiates Screen NEGATIVE (NEGATIVE) 10/12/17 15:45 Urine Methadone Screen NEGATIVE (NEGATIVE) 10/12/17 15:45 Acetaminophen < 10.0 ug/mL (10.0-30.0) L 10/12/17 15:34 Ur Barbiturates Screen POSITIVE (NEGATIVE) H 10/12/17 15:45 Ur Tricyclics Screen NEGATIVE (NEGATIVE) 10/12/17 15:45 Ur Phencyclidine Scrn NEGATIVE (NEGATIVE) 10/12/17 15:45 Amphetamines Screen NEGATIVE (NEGATIVE) 10/12/17 15:45 U Methamphetamines Scrn NEGATIVE (NEGATIVE) 10/12/17 15:45 U Benzodiazepines Scrn POSITIVE (NEGATIVE) H 10/12/17 15:45 U Cocaine Metab Screen NEGATIVE (NEGATIVE) 10/12/17 15:45 U Cannabinoids Screen POSITIVE (NEGATIVE) H 10/12/17 15:45 Ethyl Alcohol < 10 mg/dL (0-10) 10/12/17 15:34 RPR NONREACTIVE (NONREACTIVE) 10/12/17 15:34 - Physical Exam Vitals and I&O: Vital Signs Temp 98.3 F 10/19/17 06:26 Pulse 93 10/19/17 09:15 Resp 20 10/19/17 06:26 BP 139/96 10/19/17 09:15 Pulse Ox 94 10/19/17 06:26 Intake & Output 10/18/17 10/19/17 10/19/17 18:59 06:59 18:59 Intake Total 2119 Balance 2119 Intake: Oral 2119 Other: # Voids 2 # Bowel Movements 0 Active Medications: Current Medications Acetaminophen (Tylenol) 650 mg PO Q4HR PRN PRN Reason: Mild Pain / Temp above 100 Stop: 12/11/17 17:55 Last Admin: 10/15/17 13:18 Dose: 650 mg Acetaminophen/Butalbital/Caffeine (Fioricet) 1 tab PO Q6H PRN PRN Reason: Headache Stop: 12/13/17 11:28 Last Admin: 10/18/17 21:10 Dose: 1 tab Al Hydrox/Mg Hydrox/Simethicone (Maalox) 30 ml PO Q4HR PRN PRN Reason: GI DISTRESS Stop: 12/11/17 17:55 Albuterol Sulfate (Albuterol 2.5mg/3ml Neb Ud) 2.5 mg HHN Q4HRT PRN PRN Reason: Shortness of Breath Stop: 12/11/17 17:41 Albuterol Sulfate (Albuterol 2.5mg/3ml Neb Ud) 2.5 mg HHN BIDRT [facility] Stop: 12/12/17 18:59 Artificial Tears (Artificial Tears Ophth Soln) 1 drop EACH EYE Q4H PRN PRN Reason: DRY/ITCHY EYE Stop: 12/14/17 12:52 Last Admin: 10/15/17 17:35 Dose: 1 drop Bisacodyl (Dulcolax 10 Mg Supp) 10 mg RC DAILY PRN PRN Reason: Constipation Stop: 12/11/17 17:37 Cholecalciferol (Vitamin D3) 1,000 iu PO DAILY [facility] Stop: 12/12/17 08:59 Last Admin: 10/19/17 09:05 Dose: 1,000 iu Diltiazem HCl (Cardizem) 30 mg PO BID [facility] Stop: 12/12/17 08:59 Last Admin: 10/19/17 09:15 Dose: 30 mg Docusate Sodium (Colace) 200 mg PO HS [facility] Stop: 12/11/17 20:59 Last Admin: 10/18/17 21:12 Dose: 200 mg Fluoxetine HCl (Prozac) 20 mg PO DAILY [facility] PRN Reason: Protocol Stop: 12/13/17 08:59 Last Admin: 10/19/17 09:04 Dose: 20 mg Folic Acid (Folate) 5 mg PO DAILY [facility] Stop: 12/12/17 08:59 Last Admin: 10/19/17 09:04 Dose: 5 mg Gabapentin (Neurontin) 800 mg PO TID [facility] Stop: 12/12/17 23:33 Last Admin: 10/19/17 09:06 Dose: 800 mg Gemfibrozil (Lopid) 600 mg PO HS [facility] Stop: 12/11/17 20:59 Last Admin: 10/18/17 21:11 Dose: 600 mg Isosorbide Mononitrate (Imdur) 30 mg PO DAILY [facility] Stop: 12/12/17 08:59 Last Admin: 10/19/17 09:15 Dose: 30 mg Levothyroxine Sodium (Synthroid) 0.1 mg PO QDAC [facility] Stop: 12/12/17 07:29 Last Admin: 10/19/17 06:38 Dose: 0.1 mg Loratadine (Claritin) 10 mg PO DAILY [facility] Stop: 12/12/17 08:59 Last Admin: 10/19/17 09:06 Dose: 10 mg Lorazepam (Ativan) 0.5 mg PO Q4HR PRN; Protocol PRN Reason: Agitation Stop: 11/11/17 17:55 Last Admin: 10/18/17 21:42 Dose: 0.5 mg Magnesium Hydroxide (Milk Of Magnesia) 30 ml PO DAILY PRN PRN Reason: Constipation Stop: 12/11/17 17:41 Mirtazapine (Remeron) 15 mg PO HS [facility] PRN Reason: Protocol Stop: 12/11/17 20:59 Last Admin: 10/18/17 21:11 Dose: 15 mg Nitrofurantoin Macrocrystals (Macrobid) 100 mg PO BID [facility] PRN Reason: Protocol Stop: 10/20/17 16:59 Last Admin: 10/19/17 09:06 Dose: 100 mg Ondansetron HCl (Zofran Odt) 8 mg PO Q8H PRN PRN Reason: Nausea / Vomiting Oxycodone/Acetaminophen (Percocet 5/325mg Oral Tab) 1 tab PO Q4H PRN PRN Reason: Pain (Severe) Last Admin: 10/19/17 06:51 Dose: 1 tab Pantoprazole Sodium (Protonix) 40 mg PO QDAC [facility] Stop: 12/14/17 16:29 Last Admin: 10/19/17 06:38 Dose: 40 mg Rivaroxaban (Xarelto) 20 mg PO DAILY [facility] Stop: 12/12/17 08:59 Last Admin: 10/19/17 09:05 Dose: 20 mg Sodium Phosphate (Fleet Enema) 135 ml RC DAILY PRN PRN Reason: Constipation Stop: 12/13/17 08:59 Temazepam (Restoril) 15 mg PO HS PRN; Protocol PRN Reason: Insomnia Stop: 12/15/17 14:08 Trazodone HCl (Desyrel) 25 mg PO HS [facility] PRN Reason: Protocol Stop: 12/14/17 20:59 Last Admin: 10/18/17 21:12 Dose: 25 mg Triamterene/HCTZ (Dyazide) 1 cap PO DAILY [facility] Stop: 12/12/17 08:59 Last Admin: 10/19/17 09:14 Dose: 1 cap General: alert HEENT: NC/AT, PERRLA Neck: Supple Lungs: CTAB Cardiovascular: RRR, Normal S1, Normal S2, without murmur Abdomen: soft, non-tender, non-distended Neurological: alert Internal Medicine Assmt/Plan - Assessment Assessment: acute uti agitation htn copd gerd hypothyroid - Plan Plan: continue oral levaquin fall precautions continue current plan of care Nutritional Asmnt/Malnutr-PDOC - Dietary Evaluation Malnutrition Findings (Please click <Entered> for more info): Nutritional Asmnt/Malnutrition Start: 10/16/17 10: 06 Text: Status: Active Freq: Document 10/16/17 10:06 RG (Rec: 10/16/17 10:10 RG [facility]) Nutritional Asmnt/Malnutrition Patient General Information Diagnosis Psychosis Pertinent Medical Hx/Surgical Hx dyslipidemia, GERD, HTN, CAD, asthma, COPD, hypothyroid Subjective Information Pt sitting up in bed at time of visit and stated she had a good appetite Current Diet Order/ Nutrition Support Vegetarian cardiac chooped Pertinent Medications maalox, vit D3, colace, folate , synthorid, MOM, zofran, protonix, fleet enema Pertinent Labs labs from 10/12: Na 140, K 4.0, Cl 104, CO2 26. 6, BUN 11, Cr 0.8, Ca 9.6, glucose 82 Nutritional Hx/Data Height 5 ft 9 in Height (Calculated Centimeters) 175.3 Current Weight (lbs) 170 lb Weight (Calculated Kilograms) 77.1 Weight (Calculated Grams) 44439.7 Body Mass Index (BMI) 25.1 Weight Status Overweight GI Symptoms GI Symptoms None Last BM 10/15 Cultural/Ethnic/Worship Belief None noted Usual diet at home unknown Skin Integrity/Comment: jie score 17 Current %PO Good (75-100%) Estimated Nutritional Goals BEE in Kcals: Using Current wt Calories/Kcals/Kg 25-30kcals/kg Kcals Calculated 1925-2310kcals/day Protein: Using Current wt Protein g/kg/kg Protein Calculated 77g/day Fluid: ml per MD Nutritional Problem 1. Problem Problem No nutrition diagnosis at this time Intervention/Recommendation Comments Recommend continuing Cardiac Vegetarian diet Expected Outcomes/Goals Expected Outcomes/Goals PO intake >75% of meals
[2017-10-19] MEDS: Albuterol Nebulizer 2.5mg/3mL HHN SCH ×2 (13:20→19:12)
--- NOTE | 2017-10-19 15:07 | Progress Notes ---
DATE: 10/19/2017 SUBJECTIVE: Staff was spoken to. The patient is interviewed. Mood is noted to be irritable. Affect is constricted. The patient is isolative and withdrawn. Coping skills are noted to be poor. The patient is stating since the change of medication, she has been doing a little bit better. ASSESSMENT: The patient is still depressed. PLAN: To continue the patient with supportive therapy, encouraged the patient to verbalize the concerns rather than to act out. [facility]# [id number]
[2017-10-19] MEDS: APAP 325mg/Butalbital 50mg/Caff 40mg Tab PO PRN (15:39)
[2017-10-20] MEDS: Levothyroxine 0.1 Mg Tab PO SCH (06:35)
[2017-10-20] MEDS: Pantoprazole 40 mg EC Tab PO SCH (06:38)
[2017-10-20] MEDS: Albuterol Nebulizer 2.5mg/3mL HHN SCH (07:56)
[2017-10-20] MEDS: Multivitamin w/ Minerals Tab PO SCH (10:00)
[2017-10-20] MEDS: Diltiazem 30 mg Tab PO SCH (10:00)
[2017-10-20] MEDS: APAP/Oxycodone 5/325mg Oral Tab PO PRN (12:49)
--- NOTE | 2017-10-20 15:51 | Internal Medicine Prog Note ---
Internal Medicine Subjective - Subjective Patient seen and examined:: with staff, chart reviewed, other (pt seen earlier in the morning w staff) Patient is:: awake, verbal, interactive Per staff patient has:: no adverse event, no episodes of fall, agitated, tolerating meds Internal Medicine Objective - Results Result Diagrams: 10/12/17 15:34 10/12/17 15:34 Recent Labs: Laboratory Last Values WBC 6.5 Th/cmm (4.8-10.8) 10/12/17 15:34 RBC 4.45 Mil/cmm (3.80-5.10) 10/12/17 15:34 Hgb 13.1 gm/dL (12-16) 10/12/17 15:34 Hct 39.8 % (41.0-60) L 10/12/17 15:34 MCV 89.4 fl (81-100) 10/12/17 15:34 MCH 29.5 pg (27.0-31.0) 10/12/17 15:34 MCHC Differential 33.0 pg (28.0-36.0) 10/12/17 15:34 RDW 14.4 % (11.5-20.0) 10/12/17 15:34 Plt Count 229 Th/cmm (150-400) 10/12/17 15:34 MPV 7.5 fl 10/12/17 15:34 Neutrophils % 78.7 % (40.0-80.0) 10/12/17 15:34 Lymphocytes % 12.1 % (20.0-50.0) L 10/12/17 15:34 Monocytes % 6.7 % (2.0-10.0) 10/12/17 15:34 Eosinophils % 0.7 % (0.0-5.0) 10/12/17 15:34 Basophils % 1.8 % (0.0-2.0) 10/12/17 15:34 Sodium 140 mEq/L (136-145) 10/12/17 15:34 Potassium 4.0 mEq/L (3.5-5.1) 10/12/17 15:34 Chloride 104 mEq/L (98-107) 10/12/17 15:34 Carbon Dioxide 26.6 mEq/L (21.0-31.0) 10/12/17 15:34 Anion Gap 13.4 (7.0-16.0) 10/12/17 15:34 BUN 11 mg/dL (7-25) 10/12/17 15:34 Creatinine 0.8 mg/dL (0.6-1.2) 10/12/17 15:34 Est GFR ( Amer) > 60.0 ml/min (>90) 10/12/17 15:34 Est GFR (Non-Af Amer) > 60.0 ml/min 10/12/17 15:34 BUN/Creatinine Ratio 13.8 10/12/17 15:34 Glucose 82 mg/dL (70-105) 10/12/17 15:34 Hemoglobin A1c % 5.1 % (4.0-6.0) 10/12/17 15:34 Calcium 9.6 mg/dL (8.6-10.3) 10/12/17 15:34 Total Bilirubin 0.3 mg/dL (0.3-1.0) 10/12/17 15:34 AST 16 U/L (13-39) 10/12/17 15:34 ALT 11 U/L (7-52) 10/12/17 15:34 Alkaline Phosphatase 103 U/L (34-104) 10/12/17 15:34 Total Protein 6.6 gm/dL (6.0-8.3) 10/12/17 15:34 Albumin 3.8 gm/dL (3.7-5.3) 10/12/17 15:34 Globulin 2.8 gm/dL 10/12/17 15:34 Albumin/Globulin Ratio 1.4 (1.0-1.8) 10/12/17 15:34 Triglycerides 62 mg/dL (<150) 10/12/17 15:34 Cholesterol 172 mg/dL (<200) 10/12/17 15:34 LDL Cholesterol Direct 79 mg/dL (75-193) 10/12/17 15:34 HDL Cholesterol 76 mg/dL (23-92) 10/12/17 15:34 TSH 0.60 uIU/ml (0.34-5.60) 10/12/17 15:34 Urine Source CLEAN C 10/12/17 15:45 Urine Color YELLOW 10/12/17 15:45 Urine Clarity CLEAR (CLEAR) 10/12/17 15:45 Urine pH 7.0 (4.6 - 8.0) 10/12/17 15:45 Ur Specific [place] 1.015 (1.005-1.030) 10/12/17 15:45 Urine Protein NEGATIVE mg/dL (NEGATIVE) 10/12/17 15:45 Urine Glucose (UA) NEGATIVE mg/dL (NEGATIVE) 10/12/17 15:45 Urine Ketones TRACE mg/dL (NEGATIVE) 10/12/17 15:45 Urine Blood NEGATIVE (NEGATIVE) 10/12/17 15:45 Urine Nitrate NEGATIVE (NEGATIVE) 10/12/17 15:45 Urine Bilirubin NEGATIVE (NEGATIVE) 10/12/17 15:45 Urine Urobilinogen 0.2 E.U./dL (0.2 - 1.0) 10/12/17 15:45 Ur Leukocyte Esterase MODERATE (NEGATIVE) H 10/12/17 15:45 Urine RBC NONE SEEN /hpf (0-5) 10/12/17 15:45 Urine WBC 6-10 /hpf (0-5) H 10/12/17 15:45 Ur Epithelial Cells NONE SEEN /lpf (FEW) 10/12/17 15:45 Urine Bacteria NONE SEEN /hpf (NONE SEEN) 10/12/17 15:45 Salicylates < 25.0 mg/L (30.0-100.0) L 10/12/17 15:34 Urine Opiates Screen NEGATIVE (NEGATIVE) 10/12/17 15:45 Urine Methadone Screen NEGATIVE (NEGATIVE) 10/12/17 15:45 Acetaminophen < 10.0 ug/mL (10.0-30.0) L 10/12/17 15:34 Ur Barbiturates Screen POSITIVE (NEGATIVE) H 10/12/17 15:45 Ur Tricyclics Screen NEGATIVE (NEGATIVE) 10/12/17 15:45 Ur Phencyclidine Scrn NEGATIVE (NEGATIVE) 10/12/17 15:45 Amphetamines Screen NEGATIVE (NEGATIVE) 10/12/17 15:45 U Methamphetamines Scrn NEGATIVE (NEGATIVE) 10/12/17 15:45 U Benzodiazepines Scrn POSITIVE (NEGATIVE) H 10/12/17 15:45 U Cocaine Metab Screen NEGATIVE (NEGATIVE) 10/12/17 15:45 U Cannabinoids Screen POSITIVE (NEGATIVE) H 10/12/17 15:45 Ethyl Alcohol < 10 mg/dL (0-10) 10/12/17 15:34 RPR NONREACTIVE (NONREACTIVE) 10/12/17 15:34 - Physical Exam Vitals and I&O: Vital Signs Temp 98.2 F 10/20/17 06:37 Pulse 95 10/20/17 12:54 Resp 20 10/20/17 12:54 BP 134/87 10/20/17 12:54 Pulse Ox 95 10/20/17 07:56 Intake & Output 10/19/17 10/20/17 10/20/17 18:59 06:59 18:59 Intake Total 360 640 Balance 360 640 Intake: Oral 360 640 Other: # Voids 2 2 # Bowel Movements 0 1 General: alert HEENT: NC/AT, PERRLA Neck: Supple Lungs: CTAB Cardiovascular: RRR, Normal S1, Normal S2, without murmur Abdomen: soft, non-tender, non-distended Neurological: alert Internal Medicine Assmt/Plan - Assessment Assessment: - Assessment Assessment: acute uti agitation htn copd gerd hypothyroid - Plan Plan: continue oral levaquin fall precautions continue current plan of care - Plan Plan: cpm Nutritional Asmnt/Malnutr-PDOC - Dietary Evaluation Malnutrition Findings (Please click <Entered> for more info): Nutritional Asmnt/Malnutrition Start: 10/16/17 10: 06 Text: Status: Discharge Freq: Document 10/16/17 10:06 RG (Rec: 10/16/17 10:10 [id number] [id number]) Nutritional Asmnt/Malnutrition Patient General Information Diagnosis Psychosis Pertinent Medical Hx/Surgical Hx dyslipidemia, GERD, HTN, CAD, asthma, COPD, hypothyroid Subjective Information Pt sitting up in bed at time of visit and stated she had a good appetite Current Diet Order/ Nutrition Support Vegetarian cardiac chooped Pertinent Medications maalox, vit D3, colace, folate , synthorid, MOM, zofran, protonix, fleet enema Pertinent Labs labs from 10/12: Na 140, K 4.0, Cl 104, CO2 26. 6, BUN 11, Cr 0.8, Ca 9.6, glucose 82 Nutritional Hx/Data Height 1.75 m Height (Calculated Centimeters) 175.3 Current Weight (lbs) 77.111 kg Weight (Calculated Kilograms) 77.1 Weight (Calculated Grams) 73647.7 Body Mass Index (BMI) 25.1 Weight Status Overweight GI Symptoms GI Symptoms None Last BM 5/4 Cultural/Ethnic/Holiness Belief None noted Usual diet at home unknown Skin Integrity/Comment: jie score 17 Current %PO Good (75-100%) Estimated Nutritional Goals BEE in Kcals: Using Current wt Calories/Kcals/Kg 25-30kcals/kg Kcals Calculated 1925-2310kcals/day Protein: Using Current wt Protein g/kg/kg Protein Calculated 77g/day Fluid: ml per MD Nutritional Problem 1. Problem Problem No nutrition diagnosis at this time Intervention/Recommendation Comments Recommend continuing Cardiac Vegetarian diet Expected Outcomes/Goals Expected Outcomes/Goals PO intake >75% of meals
== END 2017-10-20 14:50 | DRG 885 ==
LOC: ER 15:06 → GERO2 15:40 → GERO 10-14 15:55
DX: F33.1 Major depressive disorder, recurrent, moderate (principal); N39.0 Urinary tract infection, site not specified; I10 Essential (primary) hypertension; J44.9 Chronic obstructive pulmonary disease, unspecified; K21.9 Gastro-esophageal reflux disease without esophagitis; E03.9 Hypothyroidism, unspecified; I25.10 Atherosclerotic heart disease of native coronary artery without angina pectoris; F41.9 Anxiety disorder, unspecified; E78.5 Hyperlipidemia, unspecified; Z88.0 Allergy status to penicillin; Z88.1 Allergy status to other antibiotic agents; Z88.2 Allergy status to sulfonamides; Z82.49 Family history of ischemic heart disease and other diseases of the circulatory system; Z83.3 Family history of diabetes mellitus
CPT/HCPCS: 36415-UA; 80053-TC; 80061-TC; 80307; 80320-TC; 80329-TC; 81001-TC; 83036-90; 84443-TC; 85025-TC; 86592-TC; 93005; 94760; 97530; J7613; X3904; Z7610